=== PATIENT | female | born 1955 | race Caucasian/White ===

== ENCOUNTER 2017-05-18 14:21 | Inpatient (IN) | payer BC, OTHER ==
[~2017-05-18] VITALS: Ht 160 cm; Wt 69.2 kg
[2017-05-18] MEDS ORDERED: DILTIAZEM BOLUS / DRIP IV STA ×2 (14:40→16:22)
[2017-05-18] MEDS ORDERED: SODIUM CHLORIDE 0.9% 1000ML 1,000 ML IV STA (14:40)
[2017-05-18 14:59] LABS: BASO % 0.5 %; BASO ABS # 0.04 K/uL (0-0.2); EOS % 1.3 %; HEMATOCRIT 44.7 % (37-47); HEMOGLOBIN 15.1 g/dL (12.0-16.0); IG# 0.03 K/uL (0.00-0.02); LYMPH % 23.7 %; LYMPH ABS # 1.83 K/uL (1.2-3.4); MEAN CELL VOLUME 93.9 fL (80-100); MEAN CORPUSCULAR HEMOGLOBIN 31.7 pg (25-34); MEAN CORPUSCULAR HGB CONC 33.8 g/dl (32-36); MEAN PLATELET VOLUME 12.7 fL (7.4-10.4); MONO ABS # 0.46 K/uL (0.11-0.59); NEUT % 68.1 %; NEUT ABS # 5.27 K/uL (1.4-6.5); PLATELET COUNT 201 K/uL (130-400); RED CELL DISTRIBUTION WIDTH SD 44.8 fL (36.4-46.3); WHITE BLOOD COUNT 7.73 K/uL (4.8-10.8)
[2017-05-18] MEDS ORDERED: DILTIAZEM BOLUS FROM BAG IV ONE (15:00)
[2017-05-18] MEDS: DILTIAZEM HCL INJ 125 MG in DEXTROSE 5% 100ML IV PRN ×2 (15:05→15:46)
[2017-05-18 15:07] LABS: PTT PATIENT 22.6 SECONDS (21.0-31.0)
--- NOTE | 2017-05-18 15:09 | DIAGNOSTIC IMAGING REPORT ---
CHEST ONE VIEW PORTABLE CLINICAL HISTORY: EVALUATE RESPIRATORY DISTRESS.DYSPNEA dyspnea COMPARISON STUDY: 07/09/2015 FINDINGS: The bones soft tissues and hemidiaphragms are normal. The cardiomediastinal silhouette is normal. The lungs are clear. The pulmonary vasculature is normal. IMPRESSION: Negative chest. The above report was generated using voice recognition software. It may contain grammatical, syntax or spelling errors. Electronically signed by: Ryley Nunez M.D. 05/18/2017 3:07 PM Dictated Date/Time: 05/18/2017 3:07 PM
[2017-05-18 15:24] LABS: ALBUMIN 3.5 gm/dl (3.4-5.0); ALT/SGPT 122 U/L (12-78); BLOOD UREA NITROGEN 16 mg/dl (7-18); CALCIUM 9.2 mg/dl (8.5-10.1); CARBON DIOXIDE 21 mmol/L (21-32); CREATININE 0.73 mg/dl (0.60-1.20); GLUCOSE 128 mg/dl (70-99); SODIUM 138 mmol/L (136-145)
[2017-05-18 15:28] LABS: ALKALINE PHOSPHATASE 54 U/L (45-117); AST/SGOT 95 U/L (15-37); TOTAL PROTEIN 6.7 gm/dl (6.4-8.2)
[2017-05-18] MEDS ORDERED: METOPROLOL TARTRATE 25 MG TAB PO SCH (16:30)
[2017-05-18] MEDS ORDERED: ACETAMINOPHEN 325 MG TAB PO PRN (16:30)
[2017-05-18] MEDS ORDERED: ONDANSETRON INJ 2 MG/ML 2 ML VIAL IV PRN (16:30)
[2017-05-18] MEDS ORDERED: DILTIAZEM HCL INJ 125 MG in DEXTROSE 5% 100ML IV PRN (17:15)
[2017-05-18] MEDS ORDERED: HEPARIN SOD 5000 UNIT/0.5 ML CARP IV ONE (17:45)
[2017-05-18] MEDS: HEPARIN 25,000 UNIT/500ML D5W 500 ML IV PRN (17:55)
--- NOTE | 2017-05-18 18:01 | History and Physical ---
History & Physical Date & Time of Service: May 18, 2017 ~ 16:00 Chief Complaint: Rapid Heart Beat Primary Care Physician: Dr. Stevens History of Present Illness 62 year old female who was sent to the ED by her PCPs office for new onset atrial fibrillation with RVR. Patient reports that over the past few months she has noticed exertional shortness of breath with chest pressure. Symptoms would resolve with rest. She denies any radiation of the pain into her jaw, neck, or arm. No associated lightheadedness, dizziness, diaphoresis, nausea, or syncopal events. A few days ago, patient took her BP and pulse at home and noticed that her heart rate was in the 130s. She denies feeling palpitations. She was evaluated in her PCPs office today and was found to be in atrial fibrillation with RVR. She was sent to the ED for further evaluation. She noted lower extremity edema that will come and go. She denies orthopnea. She developed a dry cough a couple of weeks ago. No fevers, chills, or sputum production. She denies abdominal pain, vomiting, or diarrhea. No urinary symptoms. She denies any bleeding problems in the past. In the ED, patient's EKG shows atrial fibrillation with rates in the 170s. She was given Cardizem 10mg IV bolus and started on a drip. HR remains in the 130s at the time of my exam. Labs are unremarkable. Past Medical/Surgical History Medical Problems: (1) Basal cell carcinoma Status: Chronic Family History FH: colon cancer MOTHER GRANDMOTHER FH: heart attack FATHER (fatal at age 62) Social History Smoking Status: Former Smoker Alcohol Use: occasionally Multi-Drug Resistant Organisms History of MDRO: No Allergies Coded Allergies: No Known Allergies (Unverified , 04/01/15) Home Medications No Active Prescriptions or Reported Meds Review of Systems ROS per HPI, all other systems reviewed and negative Physical Exam Vital Signs Date Time Temp Pulse Resp B/P (MAP) Pulse Ox O2 Delivery O2 Flow Rate FiO2 05/18/17 16:10 136 20 115/94 96 Room Air 05/18/17 15:07 148 20 120/62 98 Nasal Cannula 2.0 05/18/17 14:43 Room Air 05/18/17 14:43 Room Air 05/18/17 14:42 170 05/18/17 14:24 36.6 148 20 132/82 95 Room Air General Appearance: WD/WN, no apparent distress Head: normocephalic, atraumatic Eyes: normal inspection, EOMI, sclerae normal ENT: hearing grossly normal, + pertinent finding (mucous membranes moist) Neck: supple, no JVD, trachea midline Respiratory/Chest: lungs clear, normal breath sounds, no respiratory distress Cardiovascular: normal peripheral pulses, + tachycardia, + irregularly irregular, + pertinent finding (trace edema BLLE) Abdomen/GI: normal bowel sounds, non tender, soft, no organomegaly Extremities/Musculoskelatal: normal inspection, no calf tenderness, normal capillary refill Neurologic/Psych: no motor/sensory deficits, alert, normal mood/affect, oriented x 3 Skin: normal color, warm/dry Diagnostics Laboratory Results Results Past 24 Hours Test 05/18/17 14:45 Range/Units White Blood Count 7.73 4.8-10.8 K/uL Red Blood Count 4.76 4.2-5.4 M/uL Hemoglobin 15.1 12.0-16.0 g/dL Hematocrit 44.7 37-47 % Mean Corpuscular Volume 93.9 80-100 fL Mean Corpuscular Hemoglobin 31.7 25-34 pg Mean Corpuscular Hemoglobin Concent 33.8 32-36 g/dl Platelet Count 201 130-400 K/uL Mean Platelet Volume 12.7 7.4-10.4 fL Neutrophils (%) (Auto) 68.1 % Lymphocytes (%) (Auto) 23.7 % Monocytes (%) (Auto) 6.0 % Eosinophils (%) (Auto) 1.3 % Basophils (%) (Auto) 0.5 % Neutrophils # (Auto) 5.27 1.4-6.5 K/uL Lymphocytes # (Auto) 1.83 1.2-3.4 K/uL Monocytes # (Auto) 0.46 0.11-0.59 K/uL Eosinophils # (Auto) 0.10 0-0.5 K/uL Basophils # (Auto) 0.04 0-0.2 K/uL RDW Standard Deviation 44.8 36.4-46.3 fL RDW Coefficient of Variation 13.0 11.5-14.5 % Immature Granulocyte % (Auto) 0.4 % Immature Granulocyte # (Auto) 0.03 0.00-0.02 K/uL Prothrombin Time 10.9 9.0-12.0 SECONDS Prothromb Time International Ratio 1.0 0.9-1.1 Activated Partial Thromboplast Time 22.6 21.0-31.0 SECONDS Partial Thromboplastin Ratio 0.9 Sodium Level 138 136-145 mmol/L Potassium Level 4.0 3.5-5.1 mmol/L Chloride Level 104 98-107 mmol/L Carbon Dioxide Level 21 21-32 mmol/L Anion Gap 13.0 3-11 mmol/L Blood Urea Nitrogen 16 7-18 mg/dl Creatinine 0.73 0.60-1.20 mg/dl Est Creatinine Clear Calc Drug Dose 73.5 ml/min Estimated GFR () 102.3 Estimated GFR (Non- 88.3 BUN/Creatinine Ratio 21.9 10-20 Random Glucose 128 70-99 mg/dl Calcium Level 9.2 8.5-10.1 mg/dl Magnesium Level 1.9 1.8-2.4 mg/dl Total Bilirubin 0.5 0.2-1 mg/dl Aspartate Amino Transf (AST/SGOT) 95 15-37 U/L Alanine Aminotransferase (ALT/SGPT) 122 12-78 U/L Alkaline Phosphatase 54 45-117 U/L Troponin I < 0.015 0-0.045 ng/ml Pro-B-Type Natriuretic Peptide 2066 0-900 pg/ml Total Protein 6.7 6.4-8.2 gm/dl Albumin 3.5 3.4-5.0 gm/dl Globulin 3.2 2.5-4.0 gm/dl Albumin/Globulin Ratio 1.1 0.9-2 Thyroid Stimulating Hormone (TSH) 1.780 0.300-4.500 uIu/ml Diagnostic Radiology CXR IMPRESSION: Negative chest. Impression Assessment and Plan ATRIAL FIBRILLATION WITH RVR - admit to tele - patient presenting from PCPs office after she was found to be in atrial fibrillation with RVR, patient reports exertional chest pain and shortness of breath for the past few months - presented with HR in the 170s - s/p Cardizem 10mg bolus and drip in the ED; will continue with and start PO metoprolol - start anticoagulation with IV heparin - initial troponin negative; continue to cycle cardiac enzymes, check resting echo - no obvious signs of infection, electrolytes and TSH WNL - case discussed with Dr. Rivas DVT PROPHYLAXIS - Heparin gtt DISPO - In my clinical judgment this beneficiary meets acute admission criteria, established by [facility], that includes being hospitalized through two midnights. Agree with above H and P. Briefly 62F with no significant PMH c was having exertional sob and chest pressure for some time and cough for couple of weeks and went to see family doctor and found to be in rapid afib and was sent to Er. Denies any fevers. No nausea. NO headaches. 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 Y/N: Yes Risk Level: Moderate
[2017-05-18] MEDS ORDERED: FUROSEMIDE 20 MG TAB PO ONE (18:30)
[2017-05-18] MEDS ORDERED: POTASSIUM CHLORIDE 10 MEQ TABCR PO ONE (18:30)
[2017-05-18 18:41] VITALS: BP 116/80; PULSE 111; TEMP 37.6; O2SAT 96; Ht 160 cm; Wt 69.2 kg
[2017-05-18] MEDS ORDERED: METOPROLOL TARTRATE 25 MG TAB PO ONE (18:45)
--- NOTE | 2017-05-18 19:20 | CARDIOLOGY CONSULTATION ---
DATE OF CONSULTATION: 05/18/2017 REFERRING: BRAD Krishnan. PRIMARY: Dr. Pinto. INDICATIONS: Atrial fibrillation with rapid ventricular response. HISTORY OF PRESENT ILLNESS: The patient is a 62-year-old female without prior cardiac history per her description, specifically denying any history of rheumatic fever, scarlet fever, heart murmur, myocardial infarction or congestive heart failure, who presented to the outpatient clinic at [facility], noting symptoms of tachypalpitations of several days to weeks, possibly months in duration by her own description. Over the weekend, she found it substantially elevated on home checks and presented for further evaluation. EKG performed and found her to be in atrial fibrillation with rapid ventricular response and she was referred to the Emergency Room for further evaluation. The patient was begun on IV diltiazem with little slowing in heart rate. She is referred for cardiology evaluation as well. On further review of systems, she denies any history of TIA or stroke. Notes no history of loss of consciousness, dizziness or lightheadedness. Notes no chest pains; has some mild breathlessness recently, but notes no specific change in her overall exercise tolerance other than a sense of heart pounding in chest. She has developed a dry nagging cough which has been persistent. Notes no sputum production, notes no acute weight loss or gain. Notes no change in appetite. Notes no sleep disturbance. Notes no rash or arthritic complaint. The patient relatively a good historian. ALLERGIES: None. MEDICATIONS PRIOR TO HOSPITALIZATION: None. PAST SURGICAL HISTORY: Per patient is none. FAMILY HISTORY: Notable for heart disease in father who had a myocardial infarction at age 62. 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 She is a nonsmoker, rare alcohol user. Uses no significant [id number] medications. PHYSICAL EXAMINATION: VITAL SIGNS: Heart rate is 130, blood pressure is 130/64. HEENT: Normocephalic, atraumatic. Nares without discharge. Throat was clear. Face was plethoric. NECK: Notable for minimal jugular venous distention, no distinct blair waves. LUNGS: Notable for mild wheezes with forced cough. CARDIOVASCULAR: Irregularly irregular with tachycardic rate. Apical impulses enlarged but minimally displaced. ABDOMEN: Soft, nontender. No distinct jugular venous distention on palpation or hepatojugular reflux. EXTREMITIES: Without cyanosis or clubbing. There is no peripheral edema. There are intact distal pulses. NEUROLOGIC: The patient is answering questions appropriately. LABORATORY STUDIES: Sodium is 138, potassium is 4.0, chloride is 104, bicarb is 21, BUN is 16, creatinine is 0.73, glucose is 128. AST is 95, ALT is 122. BNP is 2066. TSH is 1.78. Albumin is 3.5, magnesium is 1.9. IMAGING DATA: Chest x-ray by my review reveals mildly increased in cardiac silhouette size. There is no distinct infiltrate or edema. EKG reveals atrial fibrillation with rapid ventricular response, low voltage QRS, nonspecific ST segment changes. IMPRESSION: A 62-year-old female without prior cardiac history presents now with newly observed atrial fibrillation. The patient describing several weeks of perhaps longer episodes of tachypalpitations sustained, heart rate was significantly elevated on presentation and the patient is symptomatic. She has had minimal response to IV diltiazem other than slow to a heart rate of 136-140. I discussed atrial fibrillation in detail with the patient. PLAN: Slow heart rate further with beta melina, begin with 25 q. 6 hours of metoprolol, discontinuing IV diltiazem, single dose of furosemide orally be given here given mild elevation of BNP and wheezy cough with inspiration and mild plethora on examination. Echocardiogram has been ordered for a.m. She has been appropriately begun on IV heparin, but likely will transition promptly to an oral agent to be kept n.p.o. dependent on results of testing in a.m. and decide optional management. Hopefully, patient will slow with initiation of medical therapies and above changes. Low QRS which is on electrocardiogram observed, no signs to suggest a large pericardial effusion on chest x-ray or exam. Will wait a.m. studies for further review.
[2017-05-18 20:00] VITALS: O2SAT 96
[2017-05-18 20:17] VITALS: BP 126/68; PULSE 106; TEMP 37.1; O2SAT 95
--- NOTE | 2017-05-18 20:25 | EMERGENCY ROOM VISIT NOTE ---
History Report prepared by [place]: Merari Delgadillo Under the Supervision of: Dr. William Mauro D.O. First contact with patient: 14:29 Chief Complaint: RESPIRATORY PROBLEMS Stated Complaint: RAPID HEART BEAT Nursing Triage Summary: pt sent here from PMD office with new onset afib pt c/o SOB History of Present Illness The patient is a 62 year old female who presents to the Emergency Room with complaints of intermittent shortness of breath for three months. The patient notes the shortness of breath worsens with exertion. She also notes chest pressure that is present with exertion for the last three months. She denies any arm or jaw pain. She states that she developed a dry cough two weeks ago. She notes mild swelling in legs, though it is intermittent. She reports this past weekend her pulse was 130. She was recently seen by her PCP and was advised to come to the ED for evaluation due to high pulse. Patient denies diabetes, hypertension, hyperlipidemia, CAD, history of sudden at a young age, and smoking. Patient denies, recent trips, history of immobilization or recent surgery, prior history of DVT, hemoptysis, history of smoking. She denies any fevers, abdominal pain, or pain with urine. Source of History: patient Onset: three months Position: other (global ) Quality: other (shortness of breath) Timing: intermittent Modifying Factors (Worsening): exertion Associated Symptoms: + cough (dry), + chest pain (pressure with exertion), No fevers, No abdominal pain, No urinary symptoms (no pain with urine) Note: She denies any arm or jaw pain. She notes mild swelling in legs, though it is intermittent. Review of Systems See HPI for pertinent positives & negatives. A total of 10 systems reviewed and were otherwise negative. Past Medical & Surgical Medical Problems: (1) Atrial fibrillation (2) Basal cell carcinoma (3) Lumb/Lumbosac Disc Degen (4) Opioid/Other Dep-Contin Family History FH: colon cancer MOTHER GRANDMOTHER FH: heart attack FATHER (fatal at age 62) Social History Smoking Status: Never Smoker Alcohol Use: occasionally Marital Status: Occupation Status: employed Current/Historical Medications No Active Prescriptions or Reported Meds Allergies Coded Allergies: No Known Allergies (Unverified , 04/01/15) Physical Exam Vital Signs Date Time Temp Pulse Resp B/P (MAP) Pulse Ox O2 Delivery O2 Flow Rate FiO2 05/18/17 16:10 136 20 115/94 96 Room Air 05/18/17 15:07 148 20 120/62 98 Nasal Cannula 2.0 05/18/17 14:43 Room Air 05/18/17 14:43 Room Air 05/18/17 14:42 170 05/18/17 14:24 36.6 148 20 132/82 95 Room Air Physical Exam GENERAL: Sitting up in bed, alert, anxious appearing, well nourished, no distress, non-toxic EYE EXAM: normal conjunctiva. OROPHARYNX: no exudate, no erythema, lips, buccal mucosa, and tongue normal and mucous membranes are moist NECK: supple, no nuchal rigidity, no adenopathy, non-tender LUNGS: Clear to auscultation. Normal chest wall mechanics HEART: Tachycardic and irregularly irregular rhythm, no murmurs, S1 normal and S2 normal ABDOMEN: abdomen soft, non-tender, normo-active bowel sounds, no masses, no rebound or guarding. BACK: Back is symmetrical on inspection and there is no deformity, no midline tenderness, no CVA tenderness. SKIN: no rashes and no bruising UPPER EXTREMITIES: upper extremities are grossly normal. LOWER EXTREMITIES: No pitting edema. Calves are equal and bilateral. NEURO EXAM: Normal sensorium, cranial nerves II-XII grossly intact, normal speech, no gross weakness of arms, no gross weakness of legs. Medical Decision & Procedures ER Provider Diagnostic Interpretation: Radiology results as stated below per my review and the radiologist's interpretation: CHEST ONE VIEW PORTABLE CLINICAL HISTORY: EVALUATE RESPIRATORY DISTRESS.DYSPNEA dyspnea COMPARISON STUDY: 07/09/2015 FINDINGS: The bones soft tissues and hemidiaphragms are normal. The cardiomediastinal silhouette is normal. The lungs are clear. The pulmonary vasculature is normal. IMPRESSION: Negative chest. The above report was generated using voice recognition software. It may contain grammatical, syntax or spelling errors. Electronically signed by: Ryley Nunez M.D. 05/18/2017 3:07 PM Dictated Date/Time: 05/18/2017 3:07 PM Laboratory Results 05/18/17 14:45 Red Blood Count 4.76, Mean Corpuscular Volume 93.9, Mean Corpuscular Hemoglobin 31.7, Mean Corpuscular Hemoglobin Concent 33.8, Mean Platelet Volume 12.7, Neutrophils (%) (Auto) 68.1, Lymphocytes (%) (Auto) 23.7, Monocytes (%) (Auto) 6.0, Eosinophils (%) (Auto) 1.3, Basophils (%) (Auto) 0.5, Neutrophils # (Auto) 5.27, Lymphocytes # (Auto) 1.83, Monocytes # (Auto) 0.46, Eosinophils # (Auto) 0.10, Basophils # (Auto) 0.04 05/18/17 14:45 Test 05/18/17 14:45 05/18/17 14:48 White Blood Count 7.73 K/uL (4.8-10.8) Red Blood Count 4.76 M/uL (4.2-5.4) Hemoglobin 15.1 g/dL (12.0-16.0) Hematocrit 44.7 % (37-47) Mean Corpuscular Volume 93.9 fL (80-100) Mean Corpuscular Hemoglobin 31.7 pg (25-34) Mean Corpuscular Hemoglobin Concent 33.8 g/dl (32-36) Platelet Count 201 K/uL (130-400) Mean Platelet Volume 12.7 fL (7.4-10.4) Neutrophils (%) (Auto) 68.1 % Lymphocytes (%) (Auto) 23.7 % Monocytes (%) (Auto) 6.0 % Eosinophils (%) (Auto) 1.3 % Basophils (%) (Auto) 0.5 % Neutrophils # (Auto) 5.27 K/uL (1.4-6.5) Lymphocytes # (Auto) 1.83 K/uL (1.2-3.4) Monocytes # (Auto) 0.46 K/uL (0.11-0.59) Eosinophils # (Auto) 0.10 K/uL (0-0.5) Basophils # (Auto) 0.04 K/uL (0-0.2) RDW Standard Deviation 44.8 fL (36.4-46.3) RDW Coefficient of Variation 13.0 % (11.5-14.5) Immature Granulocyte % (Auto) 0.4 % Immature Granulocyte # (Auto) 0.03 K/uL (0.00-0.02) Prothrombin Time 10.9 SECONDS (9.0-12.0) Prothromb Time International Ratio 1.0 (0.9-1.1) Activated Partial Thromboplast Time 22.6 SECONDS (21.0-31.0) Partial Thromboplastin Ratio 0.9 Anion Gap 13.0 mmol/L (3-11) Est Creatinine Clear Calc Drug Dose 73.5 ml/min Estimated GFR () 102.3 Estimated GFR (Non- 88.3 BUN/Creatinine Ratio 21.9 (10-20) Calcium Level 9.2 mg/dl (8.5-10.1) Magnesium Level 1.9 mg/dl (1.8-2.4) Total Bilirubin 0.5 mg/dl (0.2-1) Aspartate Amino Transf (AST/SGOT) 95 U/L (15-37) Alanine Aminotransferase (ALT/SGPT) 122 U/L (12-78) Alkaline Phosphatase 54 U/L (45-117) Pro-B-Type Natriuretic Peptide 2066 pg/ml (0-900) Total Protein 6.7 gm/dl (6.4-8.2) Albumin 3.5 gm/dl (3.4-5.0) Globulin 3.2 gm/dl (2.5-4.0) Albumin/Globulin Ratio 1.1 (0.9-2) Thyroid Stimulating Hormone (TSH) 1.780 uIu/ml (0.300-4.500) Laboratory results per my review. Medications Administered Medications (Trade) Dose Ordered Sig/Callie Route Start Time Stop Time Status Last Admin Dose Admin Sodium Chloride 1,000 ml @ 999 mls/hr Q1H1M STAT IV 05/18/17 14:40 05/18/17 15:40 DC 05/18/17 15:04 999 MLS/HR Diltiazem HCl (Cardizem Bolus From Bag) 10 mg ONE ONCE IV 05/18/17 15:00 05/18/17 15:01 DC 05/18/17 15:00 10 MG Diltiazem HCl 125 mg/Dextrose 125 ml @ 0 mls/hr Q0M PRN IV 05/18/17 15:00 05/18/17 18:40 DC 05/18/17 15:46 10 MLS/HR ECG Indication: SOB/dyspnea Rate (beats per minute): 177 Rhythm: atrial fibrillation, other (with RVR) Findings: nonspecific-ST abn (Inferior and lateral), other (Normal axis) ED Course ED COURSE: Vital signs were reviewed and showed tachycardic The patients medical record was reviewed The above diagnostic studies were performed and reviewed. ED treatments and interventions as stated above. 1433: The patient was evaluated in room A11B. A complete history and physical examination was performed. 1440: Ordered Sodium Chloride 1,000 ml @ 999 mls/hr IV and Diltiazem HCl 1 ea IV 1500: Ordered Diltiazem HCl 125 mg/Dextrose 125 ml @ 0 mls/hr PRN IV and Diltiazem HCl 10 mg IV 1535: Upon reevaluation, the patient's heart rate is in the 120s. I discussed my findings with the patient and she understands and agrees with the treatment plan. Based on the patients age, coexisting illnesses, exam and lab findings the decision to treat as an inpatient was made. The patient remained stable while under my care. The patient will be evaluated for further management. 1550: I spoke with BRAD Krishnan. We discussed the patients case. The patient will be evaluated by the [facility] for further management. Medical Decision Differential diagnoses includes but is not limited to pneumonia, bronchitis, COPD/Asthma exacerbation, pneumothorax, pulmonary embolism, congestive heart failure, acute coronary syndrome. Patient is a 62-year-old female who presents to ER for shortness of breath which has been present for the past several months. She also admits to feeling her heart race over the past several days. checked her heart rate over the weekend and was in the 130s. She admits to a cough for the past week. Shortness of breath is present with movement. With rest she is not short of breath will and has no chest pain. CBC all BMP and troponin was unremarkable. She had a faint transaminitis. INR was unremarkable. UA was contaminated. Chest x-ray was fairly unremarkable. EKG shows A. fib with RVR. Heart rate was in the 170s. She was given Cardizem drip and bolus. Heart trended down to low 100s. She rested comfortably. She was admitted to internal medicine for further workup of her A. fib with RVR. Medication Reconcilliation Current Medication List: was personally reviewed by me Blood Pressure Screening Patient's blood pressure: Normal blood pressure Consults Time Called: [id number] Consulting Physician: BRAD Krishnan Returned Call: 1550 I spoke with BRAD Krishnan. We discussed the patients case. [facility]. Impression Primary Impression: Atrial fibrillation with RVR Critical Care I have personally spent 35 minutes of critical care time in the direct management of this patient. This includes bedside care, interpretation of diagnostic studies, and testing, discussion with consultants, patient, and family members, and other required patient management activities. This 35 minutes is in excess of all separately billable procedures. Scribe Attestation The scribe's documentation has been prepared under my direction and personally reviewed by me in its entirety. I confirm that the note above accurately reflects all work, treatment, procedures, and medical decision making performed by me. Departure Information Dispostion Being Evaluated By Hospitalist Prescriptions No Active Prescriptions or Reported Meds Referrals Adriana Seymour DO (PCP) Patient Instructions [facility]
[2017-05-18] MEDS: METOPROLOL TARTRATE 25 MG TAB PO SCH (22:30)
[2017-05-18 22:50] VITALS: BP 91/62; PULSE 81; TEMP 37; O2SAT 97
[2017-05-19] VITALS (17 sets, daily range): BP systolic 77–126; BP diastolic 46–82; PULSE 74–130; TEMP 36.5–36.8; O2SAT 92–96
[2017-05-19 01:23] LABS: PTT PATIENT 69.2 SECONDS (21.0-31.0)
[2017-05-19] MEDS ORDERED: LORAZEPAM 0.5 MG TAB PO ONE (01:45)
[2017-05-19] MEDS: METOPROLOL TARTRATE 25 MG TAB PO SCH ×2 (06:32→10:46)
[2017-05-19 07:40] LABS: HEMATOCRIT 40.8 % (37-47); HEMOGLOBIN 13.8 g/dL (12.0-16.0); MEAN CORPUSCULAR HEMOGLOBIN 31.8 pg (25-34); MEAN CORPUSCULAR HGB CONC 33.8 g/dl (32-36); MEAN PLATELET VOLUME 12.9 fL (7.4-10.4); PLATELET COUNT 156 K/uL (130-400); RED CELL DISTRIBUTION WIDTH SD 44.7 fL (36.4-46.3); WHITE BLOOD COUNT 6.52 K/uL (4.8-10.8)
[2017-05-19 08:09] LABS: CALCIUM 8.8 mg/dl (8.5-10.1); CREATININE 0.58 mg/dl (0.60-1.20); POTASSIUM 3.9 mmol/L (3.5-5.1)
--- NOTE | 2017-05-19 09:44 | Cardiology Follow-Up ---
Subjective General Date of Service: May 19, 2017. Chief Complaint: palpitations Pt evaluation today including: conversation w/ patient, physical exam, chart review, lab review, review of studies, review of inpatient medication list History of Present Illness Patient resting in bed comfortably. Daughter at bedside. Symptoms improved from admission but still noted. No chest pain or SOB. Cough improving from yesterday. Denies dizziness, syncope or near syncope. No orthopnea, PND or edema. She is NPO Allergies Coded Allergies: No Known Allergies (Unverified , 04/01/15) Social History Smoking Status: Never Smoker Hx Tobacco Use In Past Year?: No Hx Alcohol Use - Type And Amou: Yes (occasional wine) Hx Substance Use - Type And Am: No Problem List Medical Problems: (1) Atrial fibrillation with RVR Status: Acute Review of Systems Respiratory: + cough, No sputum, No shortness of breath, No dyspnea at rest, No hemoptysis Cardiac: + palpitations, No chest pain, No orthopnea, No PND, No edema Physical Exam Vital Signs Last Vital Signs Documentation Date Time Temp Pulse Resp B/P (MAP) Pulse Ox O2 Delivery O2 Flow Rate FiO2 05/19/17 08:05 36.7 109 18 99/65 (76) 95 Room Air 05/18/17 17:56 2.0 Physical Exam Constitutional: General Apperance: heathly-appearing Level of Distress: NAD Psychiatric: Mental Status: active & alert Orientation: to time, to place, to person Head: normocephalic, atraumatic Eyes: Pupils: PERRLA Neck: supple Lungs: Respiratory effort: good air movement Auscultation: wet rales/crackles (faint bibasilar rales) Cardiovascular: Heart Auscultation: tachycardia, irregular rate rhythm Abdomen: Bowel Sounds: normal Inspection & Palpation: soft, non-distended Extremities: no edema Assessment and Plan Assessment and Plan ASSESSMENT: 62-year-old female with no known prior cardiac history presenting with 1. new onset Atrial fibrillation with RVR, duration suggestive of weeks to months. 2. Cardiomyopathy with severe LV dysfunction per echo this AM, possibly tachy induced. PLAN: Continue IV heparin for anticoagulation therapy Continue metoprolol for rate control. Rates ranging 110-130 Plan for possible diagnostic cardiac cath today for further evaluation of cardiomyopathy. Keep NPO. Case discussed with Dr. Rivas. Will follow Plan as above cath today. ? ALHAJI cardioversion am Ariel Rivas MD Laboratory Results Last 24 Hours Test 05/18/17 14:45 05/18/17 14:48 05/18/17 18:30 05/18/17 19:56 White Blood Count 7.73 K/uL Red Blood Count 4.76 M/uL Hemoglobin 15.1 g/dL Hematocrit 44.7 % Mean Corpuscular Volume 93.9 fL Mean Corpuscular Hemoglobin 31.7 pg Mean Corpuscular Hemoglobin Concent 33.8 g/dl Platelet Count 201 K/uL Mean Platelet Volume 12.7 fL Neutrophils (%) (Auto) 68.1 % Lymphocytes (%) (Auto) 23.7 % Monocytes (%) (Auto) 6.0 % Eosinophils (%) (Auto) 1.3 % Basophils (%) (Auto) 0.5 % Neutrophils # (Auto) 5.27 K/uL Lymphocytes # (Auto) 1.83 K/uL Monocytes # (Auto) 0.46 K/uL Eosinophils # (Auto) 0.10 K/uL Basophils # (Auto) 0.04 K/uL RDW Standard Deviation 44.8 fL RDW Coefficient of Variation 13.0 % Immature Granulocyte % (Auto) 0.4 % Immature Granulocyte # (Auto) 0.03 K/uL Prothrombin Time 10.9 SECONDS Prothromb Time International Ratio 1.0 Activated Partial Thromboplast Time 22.6 SECONDS Partial Thromboplastin Ratio 0.9 Sodium Level 138 mmol/L Potassium Level 4.0 mmol/L Chloride Level 104 mmol/L Carbon Dioxide Level 21 mmol/L Anion Gap 13.0 mmol/L Blood Urea Nitrogen 16 mg/dl Creatinine 0.73 mg/dl Est Creatinine Clear Calc Drug Dose 73.5 ml/min Estimated GFR () 102.3 Estimated GFR (Non- 88.3 BUN/Creatinine Ratio 21.9 Random Glucose 128 mg/dl Calcium Level 9.2 mg/dl Magnesium Level 1.9 mg/dl Total Bilirubin 0.5 mg/dl Aspartate Amino Transf (AST/SGOT) 95 U/L Alanine Aminotransferase (ALT/SGPT) 122 U/L Alkaline Phosphatase 54 U/L Troponin I < 0.015 ng/ml < 0.015 ng/ml Pro-B-Type Natriuretic Peptide 2066 pg/ml Total Protein 6.7 gm/dl Albumin 3.5 gm/dl Globulin 3.2 gm/dl Albumin/Globulin Ratio 1.1 Thyroid Stimulating Hormone (TSH) 1.780 uIu/ml Urine Color YELLOW Urine Appearance CLEAR Urine pH 5.5 Urine Specific [place] 1.016 Urine Protein NEG Urine Glucose (UA) NEG Urine Ketones NEG Urine Occult Blood NEG Urine Nitrite NEG Urine Bilirubin NEG Urine Urobilinogen NEG Urine Leukocyte Esterase LARGE Urine WBC (Auto) 10-30 /hpf Urine RBC (Auto) 0-4 /hpf Urine Hyaline Casts (Auto) 1-5 /lpf Urine Epithelial Cells (Auto) >30 /lpf Urine Bacteria (Auto) NEG Hepatitis C Antibody Screen NEG Test 05/19/17 00:50 05/19/17 07:15 Activated Partial Thromboplast Time 69.2 SECONDS Partial Thromboplastin Ratio 2.7 Troponin I < 0.015 ng/ml White Blood Count 6.52 K/uL Red Blood Count 4.34 M/uL Hemoglobin 13.8 g/dL Hematocrit 40.8 % Mean Corpuscular Volume 94.0 fL Mean Corpuscular Hemoglobin 31.8 pg Mean Corpuscular Hemoglobin Concent 33.8 g/dl RDW Standard Deviation 44.7 fL RDW Coefficient of Variation 13.0 % Platelet Count 156 K/uL Mean Platelet Volume 12.9 fL Sodium Level 137 mmol/L Potassium Level 3.9 mmol/L Chloride Level 106 mmol/L Carbon Dioxide Level 24 mmol/L Anion Gap 7.0 mmol/L Blood Urea Nitrogen 10 mg/dl Creatinine 0.58 mg/dl Est Creatinine Clear Calc Drug Dose 91.7 ml/min Estimated GFR () 114.5 Estimated GFR (Non- 98.8 BUN/Creatinine Ratio 17.6 Random Glucose 116 mg/dl Calcium Level 8.8 mg/dl
[2017-05-19] MEDS ORDERED: MIDAZOLAM HCL 1 MG/ML 2ML VIAL ONE (12:40)
[2017-05-19] MEDS ORDERED: FENTANYL CITRATE INJ 50 MCG/1 ML 2 ML VIAL ONE (12:40)
[2017-05-19] MEDS ORDERED: NITROGLYCERIN/D5W 100MCG/ML 20ML SYR ONE (12:41)
[2017-05-19] MEDS ORDERED: NiCARDipine HCL INJ 2.5 MG/ML 10 ML AMP ONE (12:41)
[2017-05-19] MEDS ORDERED: HEPARIN SOD (PORCINE) 1000 UNIT/ML 10 ML VIAL ONE (12:41)
--- NOTE | 2017-05-19 13:29 | Progress Note ---
Medicine Progress Note Date & Time of Visit: May 19, 2017 at 13:03. Subjective Pt was seen and examined Sitting in bed with no distress with daughter at bed Pt said that she feels fine She denies any chest pain, palpitation, dizziness and SOB Objective Last 8 Hrs Date Time Temp Pulse Resp B/P (MAP) Pulse Ox O2 Delivery O2 Flow Rate FiO2 05/19/17 10:46 36.8 128 20 126/82 (97) 92 Room Air 05/19/17 08:05 36.7 109 18 99/65 (76) 95 Room Air 05/19/17 08:00 Room Air Physical Exam: General- No acute distress Head- atraumatic Eyes- PERRL, EOMI ENT- oropharynx clear Neck- supple, no JVD Lungs- No wheezing Heart- irregular rhythm Abdomen- normal bowel sounds, soft Extremities- no calf tenderness Neuro- alert, oriented x 3; PERRL, EOMI Skin- warm & dry Laboratory Results: Last 24 Hours Test 05/18/17 14:45 05/18/17 14:48 05/18/17 18:30 05/18/17 19:56 White Blood Count 7.73 K/uL Red Blood Count 4.76 M/uL Hemoglobin 15.1 g/dL Hematocrit 44.7 % Mean Corpuscular Volume 93.9 fL Mean Corpuscular Hemoglobin 31.7 pg Mean Corpuscular Hemoglobin Concent 33.8 g/dl Platelet Count 201 K/uL Mean Platelet Volume 12.7 fL Neutrophils (%) (Auto) 68.1 % Lymphocytes (%) (Auto) 23.7 % Monocytes (%) (Auto) 6.0 % Eosinophils (%) (Auto) 1.3 % Basophils (%) (Auto) 0.5 % Neutrophils # (Auto) 5.27 K/uL Lymphocytes # (Auto) 1.83 K/uL Monocytes # (Auto) 0.46 K/uL Eosinophils # (Auto) 0.10 K/uL Basophils # (Auto) 0.04 K/uL RDW Standard Deviation 44.8 fL RDW Coefficient of Variation 13.0 % Immature Granulocyte % (Auto) 0.4 % Immature Granulocyte # (Auto) 0.03 K/uL Prothrombin Time 10.9 SECONDS Prothromb Time International Ratio 1.0 Activated Partial Thromboplast Time 22.6 SECONDS Partial Thromboplastin Ratio 0.9 Sodium Level 138 mmol/L Potassium Level 4.0 mmol/L Chloride Level 104 mmol/L Carbon Dioxide Level 21 mmol/L Anion Gap 13.0 mmol/L Blood Urea Nitrogen 16 mg/dl Creatinine 0.73 mg/dl Est Creatinine Clear Calc Drug Dose 73.5 ml/min Estimated GFR () 102.3 Estimated GFR (Non- 88.3 BUN/Creatinine Ratio 21.9 Random Glucose 128 mg/dl Calcium Level 9.2 mg/dl Magnesium Level 1.9 mg/dl Total Bilirubin 0.5 mg/dl Aspartate Amino Transf (AST/SGOT) 95 U/L Alanine Aminotransferase (ALT/SGPT) 122 U/L Alkaline Phosphatase 54 U/L Troponin I < 0.015 ng/ml < 0.015 ng/ml Pro-B-Type Natriuretic Peptide 2066 pg/ml Total Protein 6.7 gm/dl Albumin 3.5 gm/dl Globulin 3.2 gm/dl Albumin/Globulin Ratio 1.1 Thyroid Stimulating Hormone (TSH) 1.780 uIu/ml Urine Color YELLOW Urine Appearance CLEAR Urine pH 5.5 Urine Specific [place] 1.016 Urine Protein NEG Urine Glucose (UA) NEG Urine Ketones NEG Urine Occult Blood NEG Urine Nitrite NEG Urine Bilirubin NEG Urine Urobilinogen NEG Urine Leukocyte Esterase LARGE Urine WBC (Auto) 10-30 /hpf Urine RBC (Auto) 0-4 /hpf Urine Hyaline Casts (Auto) 1-5 /lpf Urine Epithelial Cells (Auto) >30 /lpf Urine Bacteria (Auto) NEG Hepatitis C Antibody Screen NEG Test 05/19/17 00:50 05/19/17 07:15 Activated Partial Thromboplast Time 69.2 SECONDS Partial Thromboplastin Ratio 2.7 Troponin I < 0.015 ng/ml White Blood Count 6.52 K/uL Red Blood Count 4.34 M/uL Hemoglobin 13.8 g/dL Hematocrit 40.8 % Mean Corpuscular Volume 94.0 fL Mean Corpuscular Hemoglobin 31.8 pg Mean Corpuscular Hemoglobin Concent 33.8 g/dl RDW Standard Deviation 44.7 fL RDW Coefficient of Variation 13.0 % Platelet Count 156 K/uL Mean Platelet Volume 12.9 fL Sodium Level 137 mmol/L Potassium Level 3.9 mmol/L Chloride Level 106 mmol/L Carbon Dioxide Level 24 mmol/L Anion Gap 7.0 mmol/L Blood Urea Nitrogen 10 mg/dl Creatinine 0.58 mg/dl Est Creatinine Clear Calc Drug Dose 91.7 ml/min Estimated GFR () 114.5 Estimated GFR (Non- 98.8 BUN/Creatinine Ratio 17.6 Random Glucose 116 mg/dl Calcium Level 8.8 mg/dl Assessment & Plan ATRIAL FIBRILLATION WITH RVR Present to the ER with Afib with HR btw 140 to 170 Was starting on Cardizem drip, that was d/c Rate is uncontrolled and remain in Afib Starting on Metoprolol 25 mg PO q6hr On heparin drip Echo pending cardiology on board Plan to go to cardiac cath today (unofficial Echo showed LV dysnfuction) Continue monitor in telemetry keep NPO for now DVT PROPHYLAXIS - Heparin gtt CODE STATUS FULL CODE Current Inpatient Medications: Current Inpatient Medications Medications (Trade) Dose Ordered Sig/Callie Route Start Time Stop Time Status Last Admin Dose Admin Acetaminophen (Tylenol Tab) 650 mg Q4H PRN PO 05/18/17 16:30 06/17/17 16:29 Ondansetron HCl (Zofran Inj) 4 mg Q6H PRN IV 05/18/17 16:30 06/17/17 16:29 Metoprolol Tartrate (Lopressor Tab) 25 mg Q6 PO 05/18/17 22:30 06/17/17 22:29 05/19/17 10:46 25 MG Heparin Sodium/ Dextrose 500 ml @ 21 mls/hr [id number] PRN IV 05/18/17 17:45 06/17/17 17:44 05/18/17 17:55 21 MLS/HR
[2017-05-19] MEDS ORDERED: METOPROLOL TARTRATE 1 MG/ML VIAL ONE (13:47)
--- NOTE | 2017-05-19 13:55 | [facility] Post Operative Brief Note ---
Preliminary Procedure Note Procedure Date May 19, 2017. Pre-Procedure Diagnosis Cardiomyopathy AUC Score 7 Post-Procedure Diagnosis Normal Coronary Arteries Procedure(s) Performed Coronary Angiography, Left Heart Cath Breakfast Host Dr. Ariel Rivas Athletic Equipment Manager(s) Amilcar Grace Estimated Blood Loss <15cc Medication(s) Fentanyl (12.5 mcg IV), Nicardipine (250 mcg intraarterial after sheath insertion), Nitroglycerin, Versed (1mg IV), Lidocaine 1% (local infiltration) Preliminary Findings Atrial fibrillation with rapid ventricular response Normal coronaries Right dominant anatomy [id number] Recommendations Medical therapy and/or Counseling Specimens None Fluids (cc crystalloids) 60 Anesthesia Start 1328 End 1345 Procedural Complication(s) None Disposition PCU
[2017-05-19] MEDS ORDERED: METOPROLOL SUCC 25MG EXT REL TAB PO ONE (14:09)
[2017-05-19] MEDS ORDERED: SODIUM CHLORIDE 0.9% 1000ML 250 ML IV PRN (14:09)
[2017-05-19] MEDS ORDERED: ATROPINE SULFATE 0.1 MG/ML 5ML SYR IV PRN (14:15)
[2017-05-19] MEDS ORDERED: NITROGLYCERIN 0.4 MG SL PER TAB CHARGE SL PRN (14:15)
[2017-05-19] MEDS ORDERED: ACETAMINOPHEN 325 MG TAB PO PRN (14:15)
[2017-05-19] MEDS ORDERED: NURSING VERBAL MED ORDER ONE (14:30)
[2017-05-19] MEDS: SODIUM CHLORIDE 0.9% 1000ML 1,000 ML IV SCH ×2 (14:38→23:04)
[2017-05-19] MEDS: METOPROLOL SUCC 25MG EXT REL TAB PO SCH ×2 (17:59→23:06)
--- NOTE | 2017-05-19 18:26 | CARDIAC CATH REPORT ---
INDICATIONS: Newly diagnosed cardiomyopathy, atrial fibrillation with rapid ventricular response. PROCEDURE: Coronary angiography with left heart catheterization. BRIEF CARDIAC HISTORY: The patient is a 62-year-old female who presented with atrial fibrillation and rapid ventricular response with difficult to control rates. Echocardiogram demonstrated moderately severe LV dysfunction in diffuse manner. EKG has heart rate slowed demonstrated T-wave inversion in inferolateral leads, suggestive of ischemia. The patient had not manifested angina pectoris, exertional dyspnea and shortness of breath and class 2 heart failure was observed. No stress testing was done prior to the procedure, due to acute presentation. ACCESS: Right radial artery. CATHETERS: A 6-[place] short glide sheath, a 5[place] brachial 3.5, and a 5[place] straight pigtail. CONTRAST: Nonionic x40 mL Visipaque. SEDATION: Start time 11:28. End time 11:45. SUPERVISING NURSE: Kyle Tay RN. SEDATION: A 1 mg IV Versed and 12.5 mg IV fentanyl. MEDICATIONS: The patient received local infiltration of access site with 1% lidocaine. Following sheath insertion, 250 mcg intra-arterial nicardipine was injected and after central access obtained patient was given 2000 units IV heparin. IV FLUIDS: 60 mL normal saline. COMPLICATIONS: None. RESULTS: CORONARY ANGIOGRAPHY: Right dominant coronary anatomy was present. Left main was of normal length and caliber and bifurcated to give rise to left anterior descending and left circumflex coronaries. There is no disease in the left main. LEFT ANTERIOR DESCENDING: Left anterior descending is a short type 2 vessel with large bifurcating diagonal branch and large septal branch in its proximal third. There is no disease in the left anterior descending. LEFT CIRCUMFLEX: Left circumflex is large but nondominant in distribution. It gives rise to a very large obtuse marginal which bifurcates and reaches to the apex with significant tortuosity. The circumflex then continues along the AV groove to give rise to a moderate size posterolateral branch and an atrial branch. There is no disease in the left circumflex. RIGHT CORONARY ARTERY: The right coronary is dominant in distribution, gives rise to a sinoatrial branch after its origin, a right ventricular branch in its mid portion at the AV groove along posterior descending artery and along the AV groove along terminal bifurcating posterior ventricular branch. There is no disease in the right coronary artery. LEFT VENTRICULAR ANGIOGRAPHY: Not performed. HEMODYNAMICS: Initial aortic root pressure was 105/76 with a mean of 89 with a heart rate of 120, LV pressure following coronary angiography was 100/11 with an EDP of 18. On pullback to the aortic root, there was no transaortic valve gradient. Blood pressure at the close 110/76 with a mean of 96. FINAL IMPRESSIONS: 1. Atrial fibrillation with rapid ventricular response. 2. Diffuse cardiomyopathy by echocardiography. 3. Normal right dominant coronary anatomy without coronary artery disease. 4. Minimally elevated left end diastolic pressure. MTDD
[2017-05-19] MEDS: HEPARIN 25,000 UNIT/500ML D5W 500 ML IV PRN ×2 (19:13→19:54)
--- NOTE | 2017-05-19 22:21 | ECHOCARDIOGRAM REPORT ---
*NOTICE TO RECEIVING CONSTITUTION PARTY AGENCY This information is strictly Confidential and protected under [place] law. [place] law prohibits you from making any further disclosure of this information unless further disclosure is expressly permitted by the written consent of the person to whom it pertains or is authorized by law. A general authorization for the release of medical or other information is not sufficient for this purpose. Hospital accepts no responsibility if the information is made available to any other person, INCLUDING THE PATIENT. Interpretation Summary * Name: SHUN MANDUJANO Study Date: 05/19/2017 06:38 AM BP: 106/78 mmHg * Patient Location: C.2T\S\S243\S\1 HR: 87 * : 1955 (M/d/yyy) Gender: Female Height: 63 in * Age: 62 yrs Ethnicity: [place] Weight: 147 lb * Ordering Physician: Ryanne Harden * Referring Physician: Self, Referred * Performed By: Leatha Neely RDCS * * Reason For Study: AFIB * BSA: 1.7 m2 * -- Conclusions -- * The left ventricle is normal in size. * There is moderate to severe global hypokinesis of the left ventricle. * Ejection Fraction = 35-40%. * The left atrium is moderately dilated. * The right atrium is mild to moderately dilated. * There is moderate to severe mitral regurgitation. * There is mild tricuspid regurgitation. * The inferior vena cava is mildly dilated. Procedure Details * A contrast injection of Definity was performed to improve assessment of LV function. * Contrast was injected into an intravenous site in the left arm. * One vial of Definity ultrasound contrast was diluted in normal saline to a total volume of 10 ml. A total of '2' ml of solution was administered during imaging. * Lot # [id number] of Definity utilized for procedure. * Expiration date MAY 20. * The attending nurse who injected the contrast agent was ALONZO HIDALGO. * A complete two-dimensional transthoracic echocardiogram was performed (2D, M-mode, Doppler and color flow Doppler). Left Ventricle * The left ventricle is normal in size. * There is mild concentric left ventricular hypertrophy. * Ejection Fraction = 35-40%. * There is moderate to severe global hypokinesis of the left ventricle. Right Ventricle * The right ventricle is normal in size and function. Atria * The left atrium is moderately dilated. * The right atrium is mild to moderately dilated. * No ASD detected; PFO is not assessed. Mitral Valve * The mitral valve anatomy is normal. * There is no mitral valve stenosis. * There is moderate to severe mitral regurgitation. Tricuspid Valve * The tricuspid valve anatomy is normal. * There is no tricuspid stenosis. * There is mild tricuspid regurgitation. Aortic Valve * The aortic valve is trileaflet. * No hemodynamically significant valvular aortic stenosis. * No aortic regurgitation is present. Pulmonic Valve * The pulmonic valve is not well visualized. Great Vessels * The aortic root is normal size. Pericardium/Pleural * There is no pericardial effusion. Great Vessels * The inferior vena cava is mildly dilated. MMode 2D Measurements and Calculations IVSd 0.92 cm IVSs 1.2 cm LVIDd 4.7 cm LVIDs 3.6 cm LVPWd 1.4 cm LVPWs 1.8 cm IVS/LVPW 0.65 FS 22.7 % EDV(Teich) 102.4 ml ESV(Teich) 55.7 ml EF(Teich) 45.6 % EDV(cubed) 103.9 ml ESV(cubed) 48.0 ml EF(cubed) 53.8 % % IVS thick 31.9 % % LVPW thick 29.1 % LV mass(C)d 204.3 grams LV mass(C)dI 120.4 grams/m\S\2 LV mass(C)s 208.5 grams LV mass(C)sI 122.9 grams/m\S\2 SV(Teich) 46.8 ml SI(Teich) 27.6 ml/m\S\2 SV(cubed) 55.9 ml SI(cubed) 33.0 ml/m\S\2 Ao root diam 2.7 cm Ao root area 5.6 cm\S\2 LA dimension 4.4 cm LA/Ao 1.7 LVAd ap4 32.1 cm\S\2 LVLd ap4 7.8 cm EDV(MOD-sp4) 109.5 ml EDV(sp4-el) 112.4 ml LVAs ap4 23.4 cm\S\2 LVLs ap4 7.1 cm ESV(MOD-sp4) 63.7 ml ESV(sp4-el) 65.0 ml EF(MOD-sp4) 41.9 % EF(sp4-el) 42.2 % LVAd ap2 25.2 cm\S\2 LVLd ap2 7.0 cm EDV(MOD-sp2) 74.1 ml EDV(sp2-el) 77.6 ml LVAs ap2 17.1 cm\S\2 LVLs ap2 6.2 cm ESV(MOD-sp2) 40.3 ml ESV(sp2-el) 40.5 ml EF(MOD-sp2) 45.6 % EF(sp2-el) 47.8 % LVLd %diff -11.58 % EDV(MOD-bp) 93.3 ml LVLs %diff -15.79 % ESV(MOD-bp) 53.4 ml EF(MOD-bp) 42.8 % SV(MOD-sp4) 45.8 ml SI(MOD-sp4) 27.0 ml/m\S\2 SV(MOD-sp2) 33.8 ml SI(MOD-sp2) 19.9 ml/m\S\2 SV(MOD-bp) 39.9 ml SI(MOD-bp) 23.5 ml/m\S\2 SV(sp4-el) 47.4 ml SI(sp4-el) 27.9 ml/m\S\2 SV(sp2-el) 37.1 ml SI(sp2-el) 21.8 ml/m\S\2 Doppler Measurements and Calculations Ao V2 max 117.3 cm/sec Ao max PG 5.5 mmHg Ao max PG (full) 4.2 mmHg LV V1 max PG 1.3 mmHg LV V1 max 56.3 cm/sec MR max mal 459.9 cm/sec MR max PG 84.7 mmHg MR mean mal 348.5 cm/sec MR mean PG 54.4 mmHg MR VTI 131.1 cm TR max mal 221.6 cm/sec
[2017-05-20] VITALS (12 sets, daily range): BP systolic 90–114; BP diastolic 33–73; PULSE 78–195; TEMP 36.6–36.9; O2SAT 94–97
[2017-05-20 06:02] LABS: PTT PATIENT 65.8 SECONDS (21.0-31.0)
[2017-05-20] MEDS: SODIUM CHLORIDE 0.9% 1000ML 1,000 ML IV SCH ×3 (06:17→22:02)
[2017-05-20] MEDS: METOPROLOL SUCC 25MG EXT REL TAB PO SCH ×3 (06:18→16:42)
[2017-05-20] MEDS ORDERED: BENZOCAIN/TETRACA/BUTAM SPRAY 200 APPLN/20 GM SPRY ONE (10:21)
[2017-05-20] MEDS ORDERED: FENTANYL CITRATE INJ 50 MCG/1 ML 2 ML VIAL ONE (10:21)
[2017-05-20] MEDS ORDERED: MIDAZOLAM HCL 1 MG/ML 2ML VIAL ONE (10:21)
[2017-05-20] MEDS ORDERED: GLYCOPYRROLATE INJ 0.2 MG/ML VIAL ONE (10:21)
[2017-05-20] MEDS ORDERED: CANNULA ONE (10:22)
--- NOTE | 2017-05-20 11:03 | Pre Sedation Assessment ---
Pre Sedation Assessment General Date of Sedation: May 20, 2017. Vital Signs Past 12 Hours Date Time Temp Pulse Resp B/P (MAP) Pulse Ox O2 Delivery O2 Flow Rate FiO2 05/20/17 10:50 145 16 107/77 (87) 98 Nasal Cannula 2 05/20/17 08:00 Room Air 05/20/17 07:37 36.7 104 18 109/72 (84) 95 Room Air 05/20/17 06:18 108/67 (81) 05/20/17 04:00 Room Air 05/20/17 03:16 36.6 112 18 102/64 (77) 96 Room Air 05/20/17 00:00 Room Air 05/19/17 23:05 36.7 115 85/54 (64) 95 Room Air Review Cardiovascular: no murmur, normal peripheral pulses, + tachycardia, + irregularly irregular Lungs: chest non-tender, lungs clear, normal breath sounds, no respiratory distress, no accessory muscle use Pre-Sedation Airway Assessment Smoking Status: Never Smoker Hx of Sleep Apnea: No Short Thick Neck: No Thyro-mental Distance: > 3 Finger Breadths Oral Cavity: WNL Mallampati Classification: Class II ASA Classification: Class II NPO Status Date of Last Intake of Fluids: May 19, 2017 Time of Last Intake of Fluids: 2359 Date of Last Intake of Solids: May 19, 2017 Time of Last Intake of Solids: 2100 Notes The planned sedation has been discussed with the patient. Informed Consent was obtained. I have identified the patient, determined the appropriateness of sedation and have assessed the patient immediately prior to the procedure. All medicine(s) and interventions are by my order.
[2017-05-20] MEDS ORDERED: DILTIAZEM HCL 120 MG CAPCR PO ONE (11:33)
--- NOTE | 2017-05-20 11:40 | Cardiology Follow-Up ---
Subjective Subjective Date of Service: May 20, 2017. Pt evaluation today including: conversation w/ patient, conversation w/ family , physical exam, chart review, lab review, review of studies, review of inpatient medication list Additional Details: Pt seen and examined with daughter at bedside. States that she's had some sob and palpitations overnight but has not been receiving metoprolol as ordered. Denies cp, palpitations, lightheadedness or dizziness. Tele reviewed: atrial fibrillation with RVR Problem List Medical Problems: (1) Atrial fibrillation with RVR Status: Acute Review of Systems Respiratory: + cough, + dyspnea on exertion, No sputum, No shortness of breath , No dyspnea at rest, No hemoptysis Cardiac: + palpitations, No chest pain, No orthopnea, No PND, No edema Objective Vital Signs Last Vital Signs Documentation Date Time Temp Pulse Resp B/P (MAP) Pulse Ox O2 Delivery O2 Flow Rate FiO2 05/20/17 10:50 145 16 107/77 (87) 98 Nasal Cannula 2 05/20/17 07:37 36.7 Physical Exam: General Appearance: WD/WN, no apparent distress Eyes: bilateral eyes normal inspection, bilateral eyes PERRL, bilateral eyes EOMI ENT: normal ENT inspection, hearing grossly normal, pharynx normal Neck: supple, no adenopathy, thyroid normal, no JVD, no carotid bruits, trachea midline Respiratory/Chest: chest non-tender, lungs clear, normal breath sounds, no respiratory distress, no accessory muscle use Cardiovascular: + tachycardia, + irregularly irregular Abdomen: normal bowel sounds, non tender, soft, no organomegaly, no pulsatile mass Extremities: normal inspection, no pedal edema, no calf tenderness Neurologic/Psychiatric: tool die maker II-XII nml as tested, no motor/sensory deficits, alert, normal mood/affect, oriented x 3 Skin: normal color, warm/dry, no rash Lymphatic: no adenopathy Assessment and Plan 1. atrial fibrillation with rvr rates not controlled but has not been receiving metoprolol as ordered, will reiterate no bp holding parameters given the hemodynamics of afib with rvr and the [place] Curve, her BP will actually increase if we are able to decrease her heart rate cont metoprolol succinate Q6 hrs ALHAJI showed small left atrial thrombus, cardioversion obviously aborted explained to patient and her daughter will now need 1 month of therapeutic INR's while on coumadin then repeat ALHAJI and hopeful cardioversion should the thrombus resolve will cont with rate control will also add cardizem CD 120mg daily today not ideal to use calcium channel melina in patient with reduced LV systolic function but given that cardiomyopathy is likely tachycardia induced believe will benefit the patient start coumadin today, do not believe that NOAC's are indicated with the presence of a thrombus but I will research this further 2. NICM presumedly tachycardia induced given duration of symptoms and normal coronary arteries on cath rate control cannot add RODERICK/ARB given bp does not examine as volume overloaded will follow volume status clinically cont to monitor on tele
--- NOTE | 2017-05-20 11:56 | Post Sedation Assessment ---
Post Sedation Assessment General Date of Sedation May 20, 2017. Vital Signs: Vital Signs Past 12 Hours Date Time Temp Pulse Resp B/P (MAP) Pulse Ox O2 Delivery O2 Flow Rate FiO2 05/20/17 10:50 145 16 107/77 (87) 98 Nasal Cannula 2 05/20/17 08:00 Room Air 05/20/17 07:37 36.7 104 18 109/72 (84) 95 Room Air 05/20/17 06:18 108/67 (81) 05/20/17 04:00 Room Air 05/20/17 03:16 36.6 112 18 102/64 (77) 96 Room Air 05/20/17 00:00 Room Air Post Procedure Recovery Score Activity: (2) Moves 4 extremities * Respiration: (2) Deep breath/cough Circulation: (2) +/-20% PreAnes Value Consciousness: (1) Arouseable (by name) Oxygen Saturation: (2) > 92% On Room Air Post Anesthesia Score: 9 Discharge Sedation Level of Care: Fast Track Phase II Post Sedation Plan On clinical assessment, the patient appears to have tolerated the sedation without complications. Patient is recovering as anticipated. Patient will continue to be monitored by nursing and may be discharged when sedation discharge criteria are met per below protocol. Upon Completions of procedure and additional 15 minutes continue every 5 minute vital signs and the P.A.R. score; then discharge to a Phase I or Fast Track to Phase II per the following guidelines: * Discharge Patient to appropriate Phase II area if PAR is 8 or greater or return to pre- procedure baseline. The post - procedure orders will be as directed. * If PAR score is less than 8 or not return to pre-procedure baseline then patient will follow Phase I monitoring till PAR is reached for Phase II. The Phase I may be done in procedure room or may call to secure a Phase I area. * If naloxone or flumazenil are used for reversal, hold in Phase I for an additional 60 -120 minutes before discharge to Phase II. Please call the Sedation Physician to re-evaluate and complete post-note for discharge to Phase II area. Do NOT discharge from procedure sedation or Phase 1 until post- sedation evaluation note is complete by procedure /sedation MD Sedation Discharge Instructions to be given to the patient at discharge to home.
[2017-05-20] MEDS ORDERED: COUGH DROP (SUGAR FREE) LOZ 24 LOZ/1 BOX LOZ ONE (12:27)
--- NOTE | 2017-05-20 13:25 | TEE ---
*NOTICE TO RECEIVING [employer] This information is strictly Confidential and protected under [place] law. [place] law prohibits you from making any further disclosure of this information unless further disclosure is expressly permitted by the written consent of the person to whom it pertains or is authorized by law. A general authorization for the release of medical or other information is not sufficient for this purpose. Hospital accepts no responsibility if the information is made available to any other person, INCLUDING THE PATIENT. Interpretation Summary * Name: SHUN MANDUJANO Study Date: 05/20/2017 10:03 AM BP: 107/77 mmHg * Patient Location: C.2T\S\S243\S\1 HR: 172 * : 1955 (M/d/yyy) Gender: Female Height: 63 in * Age: 62 yrs Ethnicity: CA Weight: 145 lb * Ordering Physician: Johan Navas * Referring Physician: Self, Referred * Performed By: Jaclyn Landon RCS * * Reason For Study: A-FIB * BSA: 1.7 m2 * -- Conclusions -- * Small left atrial appendage thrombus present. * Borderline HERBER velocities averaging 4 m/s. * Moderate mitral regurgitation. Procedure Details * ALHAJI Probe #1 utilized for procedure. * The study was performed in Cardiopulmonary Department. * Time out was conducted by the physician, nurse, and rad technologist with positive identification of patient and procedure. * Informed consent for Transesophageal Echocardiogram was obtained prior to the procedure. * An intravenous line was placed. A topical anesthetic agent was used for oropharangeal anesthesia. A bite block was inserted. * The patient's vital signs, including blood pressure, heart rate, pulse oximetry and cardiac rhythm were monitored throughout the procedure . * Fentanyl 50 mcg was administered for procedural sedation. * Midazolam 3 mg administered for sedation. * The posterior oropharynx was anesthetized using a topical anesthetic spray. A bite guard was inserted. * A multifrequency, multiplane transesopheageal echocardiographic endoscope was inserted and manipulated in the standard fashion to achieve multiplane views. * The transesophageal probe was passed without difficulty. * The usual views were obtained; basal, mid-esophageal, transgastric and aortic views. * The patient tolerated the procedure well without evidence of orophangeal or esophageal trauma. * A 2D transesophageal echocardiogram with spectral and color flow Doppler was performed. * START TIME: 1109 END TIME: 1127 * A 2D transesophageal echocardiogram with Doppler and color flow Doppler was performed. Left Ventricle * The left ventricle is normal in size. * Left ventricular systolic function is moderately reduced. Atria * The left atrial size is normal. * There is a thrombus seen in the left atrial appendage. * Right atrial size is normal. * No ASD detected; PFO is not assessed. Mitral Valve * The mitral valve anatomy is normal. * There is no mitral valve stenosis. * There is moderate mitral regurgitation. Tricuspid Valve * The tricuspid valve is normal in structure and function. Aortic Valve * The aortic valve is normal in structure and function. Pulmonic Valve * The pulmonary valve is not well seen, but the Doppler examination is normal without significant regurgitation or stenosis. Great Vessels * The aortic root and proximal ascending aorta are normal sized. Pericardium * There is no pericardial effusion.
[2017-05-20] MEDS ORDERED: DILTIAZEM BOLUS / DRIP IV STA (16:40)
[2017-05-20] MEDS: WARFARIN SOD 7.5 MG TAB PO SCH (16:42)
--- NOTE | 2017-05-20 16:53 | Progress Note ---
Medicine Progress Note Date & Time of Visit: May 20, 2017 at 16:35. Subjective Pt was seen and examined Lying in bed with no distress Pt said that she feels fine Her HR continues remains elevate Denies any chest pain, palpitation, dizziness and SOB Objective Last 8 Hrs Date Time Temp Pulse Resp B/P (MAP) Pulse Ox O2 Delivery O2 Flow Rate FiO2 05/20/17 16:17 Room Air 05/20/17 15:26 36.6 107 18 100/72 (81) 96 Room Air 05/20/17 12:52 96 Room Air 05/20/17 12:08 132 12 99/64 (76) 96 Room Air 05/20/17 11:50 154 12 100/65 (77) 95 Room Air 05/20/17 11:40 170 12 92/57 (69) 97 Nasal Cannula 2 05/20/17 11:30 144 13 101/77 (85) 96 Nasal Cannula 2 05/20/17 11:27 Nasal Cannula 2 05/20/17 11:26 135 10 94/53 96 Nasal Cannula 2 05/20/17 11:22 155 13 90/33 95 Nasal Cannula 2 05/20/17 11:18 190 17 108/37 94 Nasal Cannula 2 05/20/17 11:13 195 20 112/68 95 Nasal Cannula 2 05/20/17 11:10 36.8 88 16 105/73 (84) 96 Room Air 05/20/17 11:09 190 20 114/65 97 Nasal Cannula 2 05/20/17 10:50 145 16 107/77 (87) 98 Nasal Cannula 2 Physical Exam: General- No acute distress Head- atraumatic Eyes- PERRL, EOMI ENT- oropharynx clear Neck- supple, no JVD Lungs- No wheezing Heart- irregular rhythm Abdomen- normal bowel sounds, soft Extremities- no calf tenderness Neuro- alert, oriented x 3; PERRL, EOMI Skin- warm & dry Laboratory Results: Last 24 Hours Test 05/20/17 05:08 Activated Partial Thromboplast Time 65.8 SECONDS Partial Thromboplastin Ratio 2.5 Assessment & Plan ATRIAL FIBRILLATION WITH RVR Present to the ER with Afib with HR btw 140 to 170 Was starting on Cardizem drip, that was d/c Rate is uncontrolled and remain in Afib Starting on Metoprolol 25 mg PO q6hr On heparin drip Echo pending cardiology on board Plan to go to cardiac cath today (unofficial Echo showed LV dysnfuction) Continue monitor in telemetry keep NPO for now 05/20 Normal cardiac cath Continue to on Afib rate uncontrolled cardiology on board ALHAJI done this morning showed left atrial thrombus, no cardioversion proceed Continue IV heparin, starting on Coumadin Will need to be on anticoagulant for at least 1 month with therapeutic INR's then repeat ALHAJI with hope thrombus resolves, so we can cardiovert her Starting on diltiazem 120 mg Continue metoprol q6 hr continue monitor in tele No ACEI/ARB starting due to low BP DVT PROPHYLAXIS - Heparin gtt CODE STATUS FULL CODE Current Inpatient Medications: Current Inpatient Medications Medications (Trade) Dose Ordered Sig/Callie Route Start Time Stop Time Status Last Admin Dose Admin Acetaminophen (Tylenol Tab) 650 mg Q4H PRN PO 05/18/17 16:30 06/17/17 16:29 Ondansetron HCl (Zofran Inj) 4 mg Q6H PRN IV 05/18/17 16:30 06/17/17 16:29 Heparin Sodium/ Dextrose 500 ml @ 21 mls/hr [id number] PRN IV 05/18/17 17:45 06/17/17 17:44 05/19/17 19:54 21 MLS/HR Metoprolol Succinate (Toprol Xl Tab) 25 mg Q6 PO 05/19/17 18:00 06/18/17 17:59 05/20/17 12:32 25 MG Nitroglycerin (Nitrostat Tab) 0.4 mg Q5M PRN SL 05/19/17 14:15 06/18/17 14:14 Sodium Chloride 1,000 ml @ 125 mls/hr Q8H IV 05/19/17 14:09 06/18/17 14:08 05/20/17 14:09 125 MLS/HR Acetaminophen (Tylenol Tab) 650 mg Q4H PRN PO 05/19/17 14:15 06/18/17 14:14 Sodium Chloride 250 ml @ 999 mls/hr Q16M PRN IV 05/19/17 14:09 06/18/17 14:08 Atropine Sulfate (Atropine Sulfate 0.1mg/ml Inj) 0.6 mg PRN PRN IV 05/19/17 14:15 06/18/17 14:14 Warfarin Sodium (Coumadin Tab) 7.5 mg DAILY@16 PO 05/20/17 16:00 06/19/17 15:59 Diltiazem HCl (Cardizem Cd Cap) 120 mg QAM PO 05/21/17 09:00 06/20/17 08:59
[2017-05-20] MEDS ORDERED: DILTIAZEM HCL 5 MG/ML 5 ML VIAL BOLUS/OMNI IV SCH (17:00)
[2017-05-20] MEDS: DILTIAZEM HCL INJ 125 MG in DEXTROSE 5% 100ML IV PRN (17:17)
[2017-05-20] MEDS: HEPARIN 25,000 UNIT/500ML D5W 500 ML IV PRN (19:05)
[2017-05-20] MEDS ORDERED: LORAZEPAM 0.5 MG TAB PO ONE (22:00)
[2017-05-21] VITALS (9 sets, daily range): BP systolic 99–125; BP diastolic 60–82; PULSE 89–130; TEMP 36.5–37.4; O2SAT 91–97
[2017-05-21] MEDS: METOPROLOL SUCC 25MG EXT REL TAB PO SCH ×4 (00:05→18:29)
[2017-05-21] MEDS: SODIUM CHLORIDE 0.9% 1000ML 1,000 ML IV SCH ×2 (05:53→13:44)
[2017-05-21 06:12] LABS: HEMATOCRIT 40.8 % (37-47); HEMOGLOBIN 13.4 g/dL (12.0-16.0); MEAN CELL VOLUME 95.6 fL (80-100); MEAN CORPUSCULAR HEMOGLOBIN 31.4 pg (25-34); MEAN CORPUSCULAR HGB CONC 32.8 g/dl (32-36); MEAN PLATELET VOLUME 12.4 fL (7.4-10.4); PLATELET COUNT 154 K/uL (130-400); RED CELL DISTRIBUTION WIDTH CV 13.3 % (11.5-14.5); RED CELL DISTRIBUTION WIDTH SD 45.6 fL (36.4-46.3)
[2017-05-21 06:40] LABS: CALCIUM 8.1 mg/dl (8.5-10.1); CREATININE 0.67 mg/dl (0.60-1.20); POTASSIUM 3.7 mmol/L (3.5-5.1)
[2017-05-21 06:43] LABS: INR 1.1 (0.9-1.1)
[2017-05-21] MEDS: HEPARIN 25,000 UNIT/500ML D5W 500 ML IV PRN (07:45)
[2017-05-21] MEDS: DILTIAZEM HCL 120 MG CAPCR PO SCH (09:25)
[2017-05-21] MEDS ORDERED: POTASSIUM CHLORIDE 10 MEQ TABCR PO STA (09:58)
[2017-05-21] MEDS: DILTIAZEM HCL INJ 125 MG in DEXTROSE 5% 100ML IV PRN (12:20)
[2017-05-21] MEDS ORDERED: DILTIAZEM HCL 120 MG CAPCR PO ONE (12:24)
[2017-05-21] MEDS ORDERED: LORAZEPAM 0.5 MG TAB PO STA (12:42)
[2017-05-21] MEDS ORDERED: LORAZEPAM 0.5 MG TAB PO PRN (12:45)
[2017-05-21 14:10] LABS: PTT PATIENT 65.4 SECONDS (21.0-31.0)
--- NOTE | 2017-05-21 14:20 | Cardiology Follow-Up ---
Subjective Subjective Date of Service: May 21, 2017. Pt evaluation today including: conversation w/ patient, conversation w/ family , physical exam, chart review, lab review, review of studies, review of inpatient medication list Additional Details: Pt seen and examined, with at bed side. Pt visually anxious today. States that she's feeling sob which worsens when thinking about her heart problems. Denies cp, palpitations, lightheadedness or dizziness. volunteers that patient has been very anxious for months now and has not been sleeping either, asking for meds to help with both these issues. Tele reviewed: atrial fibrillation variable rates 80's-130's Problem List Medical Problems: (1) Atrial fibrillation with RVR Status: Acute Review of Systems Respiratory: + cough, + dyspnea on exertion, No sputum, No shortness of breath , No dyspnea at rest, No hemoptysis Cardiac: + palpitations, No chest pain, No orthopnea, No PND, No edema Psychiatric: + anxiety Objective Vital Signs Last Vital Signs Documentation Date Time Temp Pulse Resp B/P (MAP) Pulse Ox O2 Delivery O2 Flow Rate FiO2 05/21/17 12:19 36.6 111 16 112/74 (87) 91 Room Air 05/20/17 11:40 2 Physical Exam: General Appearance: WD/WN, no apparent distress Eyes: bilateral eyes normal inspection, bilateral eyes PERRL, bilateral eyes EOMI ENT: normal ENT inspection, hearing grossly normal, pharynx normal Neck: supple, no adenopathy, thyroid normal, no JVD, no carotid bruits, trachea midline Respiratory/Chest: chest non-tender, lungs clear, normal breath sounds, no respiratory distress, no accessory muscle use Cardiovascular: + tachycardia, + irregularly irregular Abdomen: normal bowel sounds, non tender, soft, no organomegaly, no pulsatile mass Extremities: normal inspection, no pedal edema, no calf tenderness Neurologic/Psychiatric: 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 atrial fibrillation with rvr rates not controlled but has not been receiving metoprolol as ordered, will reiterate no bp holding parameters given the hemodynamics of afib with rvr and the Starling Curve, her BP will actually increase if we are able to decrease her heart rate cont metoprolol succinate Q6 hrs ALHAJI showed small left atrial thrombus, cardioversion obviously aborted explained to patient and her daughter will now need 1 month of therapeutic INR's while on coumadin then repeat ALHAJI and hopeful cardioversion should the thrombus resolve will cont with rate control will uptitrate po cardizem to 240mg mg daily today and wean gtt to off cont heparin bridge and coumadin 2. NICM presumedly tachycardia induced given duration of symptoms and normal coronary arteries on cath rate control cannot add RODERICK/ARB given bp does not examine as volume overloaded will follow volume status clinically 3. anxiety/insomnia I will start low dose ativan prn and ambien may benefit from SSRI, will defer to hospitalist expertise cont to monitor on tele
[2017-05-21] MEDS: WARFARIN SOD 7.5 MG TAB PO SCH (16:23)
--- NOTE | 2017-05-21 18:42 | Progress Note ---
Medicine Progress Note Date & Time of Visit: May 21, 2017 at 18:39. Subjective Pt was seen and examined Lying in bed with no distress Pt said that she is having SOB denies any chest pain, palpitation, dizziness Objective Last 8 Hrs Date Time Temp Pulse Resp B/P (MAP) Pulse Ox O2 Delivery O2 Flow Rate FiO2 05/21/17 16:00 Room Air 05/21/17 15:24 37.0 95 20 105/60 (75) 93 Nasal Cannula 2.0 05/21/17 12:19 36.6 111 16 112/74 (87) 91 Room Air 05/21/17 12:00 Room Air Physical Exam: General- No acute distress Head- atraumatic Eyes- PERRL, EOMI ENT- oropharynx clear Neck- supple, no JVD Lungs- Decrease BS Heart- irregular rhythm Abdomen- normal bowel sounds, soft Extremities- no calf tenderness Neuro- alert, oriented x 3; PERRL, EOMI Skin- warm & dry Laboratory Results: Last 24 Hours Test 05/21/17 05:44 05/21/17 13:32 White Blood Count 7.10 K/uL Red Blood Count 4.27 M/uL Hemoglobin 13.4 g/dL Hematocrit 40.8 % Mean Corpuscular Volume 95.6 fL Mean Corpuscular Hemoglobin 31.4 pg Mean Corpuscular Hemoglobin Concent 32.8 g/dl RDW Standard Deviation 45.6 fL RDW Coefficient of Variation 13.3 % Platelet Count 154 K/uL Mean Platelet Volume 12.4 fL Prothrombin Time 12.0 SECONDS Prothromb Time International Ratio 1.1 Activated Partial Thromboplast Time 70.0 SECONDS 65.4 SECONDS Partial Thromboplastin Ratio 2.7 2.5 Sodium Level 139 mmol/L Potassium Level 3.7 mmol/L Chloride Level 110 mmol/L Carbon Dioxide Level 22 mmol/L Anion Gap 7.0 mmol/L Blood Urea Nitrogen 9 mg/dl Creatinine 0.67 mg/dl Est Creatinine Clear Calc Drug Dose 82.8 ml/min Estimated GFR () 109.2 Estimated GFR (Non- 94.2 BUN/Creatinine Ratio 13.8 Random Glucose 124 mg/dl Calcium Level 8.1 mg/dl Assessment & Plan ATRIAL FIBRILLATION WITH RVR Present to the ER with Afib with HR btw 140 to 170 Was starting on Cardizem drip, that was d/c Rate is uncontrolled and remain in Afib Starting on Metoprolol 25 mg PO q6hr On heparin drip Echo pending cardiology on board Plan to go to cardiac cath today (unofficial Echo showed LV dysnfuction) Continue monitor in telemetry keep NPO for now 05/21 rate improved Normal cardiac cath Continue to on Afib cardiology on board ALHAJI done this morning showed left atrial thrombus, no cardioversion proceed Continue IV heparin, starting on Coumadin Will need to be on anticoagulant for at least 1 month with therapeutic INR's then repeat ALHAJI with hope thrombus resolves, so we can cardiovert her Continue diltiazem 120 mg was starting on cardizem drip Continue metoprol q6 hr continue monitor in tele No ACEI/ARB starting due to low BP IVF D/C Will give lasix x1 DVT PROPHYLAXIS - Heparin gtt CODE STATUS FULL CODE Current Inpatient Medications: Current Inpatient Medications Medications (Trade) Dose Ordered Sig/Callie Route Start Time Stop Time Status Last Admin Dose Admin Acetaminophen (Tylenol Tab) 650 mg Q4H PRN PO 05/18/17 16:30 06/17/17 16:29 Ondansetron HCl (Zofran Inj) 4 mg Q6H PRN IV 05/18/17 16:30 06/17/17 16:29 Heparin Sodium/ Dextrose 500 ml @ 20 mls/hr Q24H PRN IV 05/18/17 17:45 06/17/17 17:44 05/21/17 07:45 20 MLS/HR Metoprolol Succinate (Toprol Xl Tab) 25 mg Q6 PO 05/19/17 18:00 06/18/17 17:59 05/21/17 18:29 25 MG Nitroglycerin (Nitrostat Tab) 0.4 mg Q5M PRN SL 05/19/17 14:15 06/18/17 14:14 Sodium Chloride 1,000 ml @ 125 mls/hr Q8H IV 05/19/17 14:09 06/18/17 14:08 05/21/17 13:44 125 MLS/HR Acetaminophen (Tylenol Tab) 650 mg Q4H PRN PO 05/19/17 14:15 06/18/17 14:14 Sodium Chloride 250 ml @ 999 mls/hr Q16M PRN IV 05/19/17 14:09 06/18/17 14:08 Atropine Sulfate (Atropine Sulfate 0.1mg/ml Inj) 0.6 mg PRN PRN IV 05/19/17 14:15 06/18/17 14:14 Warfarin Sodium (Coumadin Tab) 7.5 mg DAILY@16 PO 05/20/17 16:00 06/19/17 15:59 05/21/17 16:23 7.5 MG Diltiazem HCl (Cardizem Cd Cap) 120 mg QAM PO 05/21/17 09:00 06/20/17 08:59 05/21/17 09:25 120 MG Diltiazem HCl 125 mg/Dextrose 125 ml @ 0 mls/hr Q0M PRN IV 05/20/17 17:00 06/19/17 16:59 05/21/17 12:20 5 MLS/HR Lorazepam (Ativan Tab) 0.5 mg Q6 PRN PO 05/21/17 12:45 06/20/17 12:44 Zolpidem Tartrate (Ambien Tab) 5 mg HS PRN PO 05/21/17 12:45 06/20/17 12:44
[2017-05-21] MEDS ORDERED: FUROSEMIDE INJ 20 MG in SYRINGE 0 ML IV ONE (18:45)
[2017-05-21] MEDS ORDERED: LEVALBUTEROL 0.63MG/3 ML NEB INH STA (19:07)
--- NOTE | 2017-05-21 21:28 | DIAGNOSTIC IMAGING REPORT ---
SINGLE VIEW CHEST CLINICAL HISTORY: Dyspnea. FINDINGS: An AP, portable, upright chest radiograph is compared to study dated 05/18/2017. The examination is degraded by portable technique and patient rotation. The heart appears mildly enlarged. There is congestion of the central pulmonary vasculature. There are layering pleural effusions with bibasilar consolidation, new from 05/18/2017. No pneumothorax is seen. The skeletal structures are osteopenic. The bony thorax is grossly intact. IMPRESSION: 1. The heart appears mildly enlarged and there is mild pulmonary vascular congestion. 2. There are layering pleural effusions with bibasilar consolidation which likely represents atelectasis. Correlate clinically for evidence of superimposed pneumonia. This finding is new from 05/18/2017. Electronically signed by: Dex Nix M.D. 05/21/2017 9:26 PM Dictated Date/Time: 05/21/2017 9:25 PM
[2017-05-21] MEDS: ZOLPIDEM TARTRATE 5 MG TAB PO PRN (22:18)
[2017-05-22] VITALS (8 sets, daily range): BP systolic 101–119; BP diastolic 51–72; PULSE 89–120; TEMP 36.6–37.1; O2SAT 90–97
[2017-05-22] MEDS: METOPROLOL SUCC 25MG EXT REL TAB PO SCH ×2 (01:04→06:41)
[2017-05-22 07:44] LABS: PTT PATIENT 70.6 SECONDS (21.0-31.0)
[2017-05-22] MEDS: DILTIAZEM HCL 120 MG CAPCR PO SCH (07:50)
[2017-05-22 08:03] LABS: INR 1.9 (0.9-1.1)
[2017-05-22] MEDS: HEPARIN 25,000 UNIT/500ML D5W 500 ML IV PRN (08:16)
[2017-05-22] MEDS ORDERED: POTASSIUM CHLORIDE 20 MEQ TABCR PO ONE (09:00)
[2017-05-22] MEDS ORDERED: FUROSEMIDE INJ 20 MG in SYRINGE 0 ML IV ONE (09:30)
[2017-05-22] MEDS ORDERED: DILTIAZEM HCL 120 MG CAPCR PO ONE (10:37)
[2017-05-22] MEDS ORDERED: METOPROLOL SUCC 25MG EXT REL TAB PO ONE (10:39)
[2017-05-22 11:49] LABS: CREATININE 0.77 mg/dl (0.60-1.20); POTASSIUM 3.8 mmol/L (3.5-5.1)
--- NOTE | 2017-05-22 12:48 | Cardiology Follow-Up ---
Subjective Subjective Date of Service: May 22, 2017. Pt evaluation today including: conversation w/ patient, physical exam, chart review, lab review, review of studies, review of inpatient medication list Additional Details: Pt seen and examined, states that she's feeling better today. Episode of shortness of breath last PM, resolved with lasix. States her anxiety is also now better controlled. Denies cp, lightheadedness or dizziness. Tele reviewed: atrial fibrillation with rates improving to 90's-110's this AM Problem List Medical Problems: (1) Atrial fibrillation with RVR Status: Acute Review of Systems Respiratory: + cough, + dyspnea on exertion, No sputum, No shortness of breath , No dyspnea at rest, No hemoptysis Cardiac: + palpitations, No chest pain, No orthopnea, No PND, No edema Psychiatric: + anxiety Objective Vital Signs Last Vital Signs Documentation Date Time Temp Pulse Resp B/P (MAP) Pulse Ox O2 Delivery O2 Flow Rate FiO2 05/22/17 11:57 36.6 120 16 105/68 (80) 96 Nasal Cannula 2.0 Physical Exam: General Appearance: WD/WN, no apparent distress Eyes: bilateral eyes normal inspection, bilateral eyes PERRL, bilateral eyes EOMI ENT: normal ENT inspection, hearing grossly normal, pharynx normal Neck: supple, no adenopathy, thyroid normal, no JVD, no carotid bruits, trachea midline Respiratory/Chest: chest non-tender, lungs clear, normal breath sounds, no respiratory distress, no accessory muscle use Cardiovascular: + tachycardia, + irregularly irregular Abdomen: normal bowel sounds, non tender, soft, no organomegaly, no pulsatile mass Extremities: normal inspection, no pedal edema, no calf tenderness Neurologic/Psychiatric: timing adjuster II-XII nml as tested, no motor/sensory deficits, alert, normal mood/affect, oriented x 3 Skin: normal color, warm/dry, no rash Lymphatic: no adenopathy Assessment and Plan 1. atrial fibrillation with rvr rates improving will change metoprolol succinate to 50mg bid today for ease of use as outpatient, can still uptitrate if necessary ALHAJI showed small left atrial thrombus, cardioversion obviously aborted explained to patient and her daughter/ will now need 1 month of therapeutic INR's while on coumadin then repeat ALHAJI and hopeful cardioversion should the thrombus resolve INR at 1.9 today cardizem gtt off will give cardizem cd 240mg today, if rates remain elevated this PM will given an additional 120mg 2. NICM presumedly tachycardia induced given duration of symptoms and normal coronary arteries on cath rate control cannot add RODERICK/ARB given bp does not examine as volume overloaded will follow volume status clinically 3. anxiety/insomnia I will start low dose ativan prn and ambien may benefit from SSRI, will defer to hospitalist expertise cont to monitor on tele
[2017-05-22 14:41] LABS: PTT PATIENT 56.6 SECONDS (21.0-31.0)
[2017-05-22] MEDS ORDERED: NURSING VERBAL MED ORDER ONE (16:00)
--- NOTE | 2017-05-22 16:16 | Progress Note ---
Medicine Progress Note Date & Time of Visit: May 22, 2017 at 09:07. Subjective Pt was seen and examined Sitting in bed with no distress Pt said that she feels much better today She said that she does not have any SOB Denies any chest pain, palpitation, dizziness and SOB Objective Last 8 Hrs Date Time Temp Pulse Resp B/P (MAP) Pulse Ox O2 Delivery O2 Flow Rate FiO2 05/22/17 12:00 Nasal Cannula 2.0 05/22/17 11:57 36.6 120 16 105/68 (80) 96 Nasal Cannula 2.0 05/22/17 08:11 37.1 115 18 119/72 (88) 90 Room Air Physical Exam: General- No acute distress Head- atraumatic Eyes- PERRL, EOMI ENT- oropharynx clear Neck- supple, no JVD Lungs- No wheezing Heart- irregular rhythm Abdomen- normal bowel sounds, soft Extremities- no calf tenderness Neuro- alert, oriented x 3; PERRL, EOMI Skin- warm & dry Laboratory Results: Last 24 Hours Test 05/22/17 06:59 05/22/17 11:04 05/22/17 14:04 Prothrombin Time 19.7 SECONDS Prothromb Time International Ratio 1.9 Activated Partial Thromboplast Time 70.6 SECONDS 56.6 SECONDS Partial Thromboplastin Ratio 2.7 2.2 Sodium Level 138 mmol/L Potassium Level 3.8 mmol/L Chloride Level 103 mmol/L Carbon Dioxide Level 27 mmol/L Anion Gap 8.0 mmol/L Blood Urea Nitrogen 8 mg/dl Creatinine 0.77 mg/dl Est Creatinine Clear Calc Drug Dose 70.7 ml/min Estimated GFR () 95.9 Estimated GFR (Non- 82.8 BUN/Creatinine Ratio 9.8 Random Glucose 142 mg/dl Calcium Level 9.0 mg/dl Assessment & Plan ATRIAL FIBRILLATION WITH RVR Present to the ER with Afib with HR btw 140 to 170 Was starting on Cardizem drip, that was d/c Rate is uncontrolled and remain in Afib Starting on Metoprolol 25 mg PO q6hr On heparin drip Echo pending cardiology on board Plan to go to cardiac cath today (unofficial Echo showed LV dysnfuction) Continue monitor in telemetry keep NPO for now 05/22 rate improved Normal cardiac cath Continue to on Afib cardiology on board ALHAJI done this morning showed left atrial thrombus, no cardioversion proceed Continue IV heparin, starting on Coumadin Will need to be on anticoagulant for at least 1 month with therapeutic INR's then repeat ALHAJI with hope thrombus resolves, so we can cardiovert her Diltiazem increase to 240mg daily was starting on cardizem drip, that was D/C Continue metoprol q6 hr continue monitor in tele No ACEI/ARB starting due to low BP IVF D/C INR 1.9 Will give coumadin 5 mg today ECHO showed * The left ventricle is normal in size. * There is moderate to severe global hypokinesis of the left ventricle. * Ejection Fraction = 35-40%. * The left atrium is moderately dilated. * The right atrium is mild to moderately dilated. * There is moderate to severe mitral regurgitation. * There is mild tricuspid regurgitation. * The inferior vena cava is mildly dilated. DYSPNEA Related to IVF CXR showed mild pulmonary vascular congestion. IVF d/c Lasix given Resolved ANXIETY Ativan prn helps Will start on low dose Zoloft 25mg daily, Side effect discussed with pt DVT PROPHYLAXIS - Heparin gtt/Coumadin CODE STATUS FULL CODE Current Inpatient Medications: Current Inpatient Medications Medications (Trade) Dose Ordered Sig/Callei Route Start Time Stop Time Status Last Admin Dose Admin Acetaminophen (Tylenol Tab) 650 mg Q4H PRN PO 05/18/17 16:30 06/17/17 16:29 Ondansetron HCl (Zofran Inj) 4 mg Q6H PRN IV 05/18/17 16:30 06/17/17 16:29 Heparin Sodium/ Dextrose 500 ml @ 19 mls/hr Q24H PRN IV 05/18/17 17:45 06/17/17 17:44 05/22/17 08:16 19 MLS/HR Nitroglycerin (Nitrostat Tab) 0.4 mg Q5M PRN SL 05/19/17 14:15 06/18/17 14:14 Acetaminophen (Tylenol Tab) 650 mg Q4H PRN PO 05/19/17 14:15 06/18/17 14:14 Sodium Chloride 250 ml @ 999 mls/hr Q16M PRN IV 05/19/17 14:09 06/18/17 14:08 Atropine Sulfate (Atropine Sulfate 0.1mg/ml Inj) 0.6 mg PRN PRN IV 05/19/17 14:15 06/18/17 14:14 Diltiazem HCl 125 mg/Dextrose 125 ml @ 0 mls/hr Q0M PRN IV 05/20/17 17:00 06/19/17 16:59 05/21/17 12:20 5 MLS/HR Lorazepam (Ativan Tab) 0.5 mg Q6 PRN PO 05/21/17 12:45 06/20/17 12:44 Zolpidem Tartrate (Ambien Tab) 5 mg HS PRN PO 05/21/17 12:45 06/20/17 12:44 05/21/17 22:18 5 MG Diltiazem HCl (Cardizem Cd Cap) 240 mg QAM PO 05/23/17 09:00 06/20/17 08:59 Metoprolol Succinate (Toprol Xl Tab) 50 mg BID PO 05/22/17 21:00 06/18/17 17:59 Warfarin Sodium (Coumadin Tab) 5 mg DAILY@16 PO 05/22/17 16:00 06/19/17 15:59 Miscellaneous Information (Nursing Verbal Med Order) 1 ea ONE ONCE N/A 05/22/17 16:00 05/22/17 16:01 UNV
[2017-05-22] MEDS: WARFARIN SOD 5 MG TAB PO SCH (16:17)
[2017-05-22] MEDS: ZOLPIDEM TARTRATE 5 MG TAB PO PRN (20:26)
[2017-05-22] MEDS: METOPROLOL SUCC 50MG EXT REL TAB PO SCH (20:26)
[2017-05-22] MEDS ORDERED: SERTRALINE HCL 50 MG TAB PO SCH (21:00)
[2017-05-23 03:33] VITALS: BP 94/54; PULSE 88; TEMP 36.9; O2SAT 91
[2017-05-23 07:43] LABS: HEMATOCRIT 38.3 % (37-47); HEMOGLOBIN 12.7 g/dL (12.0-16.0); MEAN CELL VOLUME 94.6 fL (80-100); MEAN CORPUSCULAR HEMOGLOBIN 31.4 pg (25-34); MEAN CORPUSCULAR HGB CONC 33.2 g/dl (32-36); PLATELET COUNT 133 K/uL (130-400); RED CELL DISTRIBUTION WIDTH SD 44.9 fL (36.4-46.3); WHITE BLOOD COUNT 5.31 K/uL (4.8-10.8)
[2017-05-23 07:45] VITALS: BP 105/74; PULSE 90; TEMP 36.9; O2SAT 95
[2017-05-23 08:02] LABS: INR 2.8 (0.9-1.1)
[2017-05-23 08:05] LABS: PTT PATIENT 74.4 SECONDS (21.0-31.0)
[2017-05-23] MEDS: METOPROLOL SUCC 50MG EXT REL TAB PO SCH (08:13)
[2017-05-23 08:16] LABS: CALCIUM 8.7 mg/dl (8.5-10.1); CREATININE 0.52 mg/dl (0.60-1.20); POTASSIUM 3.8 mmol/L (3.5-5.1)
[2017-05-23] MEDS: HEPARIN 25,000 UNIT/500ML D5W 500 ML IV PRN (08:16)
[2017-05-23] MEDS ORDERED: DILTIAZEM HCL 240 MG CAPCR PO SCH (09:00)
[2017-05-23] MEDS ORDERED: DILTIAZEM HCL 120 MG CAPCR PO ONE (11:15)
[2017-05-23 11:20] VITALS: BP 101/66; PULSE 106; TEMP 36.9; O2SAT 94
--- NOTE | 2017-05-23 12:17 | Cardiology Follow-Up ---
Subjective Subjective Date of Service: May 23, 2017. Pt evaluation today including: conversation w/ patient, physical exam, chart review, lab review, review of studies, review of inpatient medication list Additional Details: Pt seen and examined, states that she's feeling well today. No palpitations, chest pain, palpitations, lightheadedness or dizziness. Tele reviewed: atrial fibrillation with rates in 90's-110's Problem List Medical Problems: (1) Atrial fibrillation with RVR Status: Acute Review of Systems Respiratory: + cough, + dyspnea on exertion, No sputum, No shortness of breath , No dyspnea at rest, No hemoptysis Cardiac: + palpitations, No chest pain, No orthopnea, No PND, No edema Psychiatric: + anxiety Objective Vital Signs Last Vital Signs Documentation Date Time Temp Pulse Resp B/P (MAP) Pulse Ox O2 Delivery O2 Flow Rate FiO2 05/23/17 11:20 36.9 106 18 101/66 (78) 94 Room Air 05/23/17 07:45 2.0 Physical Exam: General Appearance: WD/WN, no apparent distress Eyes: bilateral eyes normal inspection, bilateral eyes PERRL, bilateral eyes EOMI ENT: normal ENT inspection, hearing grossly normal, pharynx normal Neck: supple, no adenopathy, thyroid normal, no JVD, no carotid bruits, trachea midline Respiratory/Chest: chest non-tender, lungs clear, normal breath sounds, no respiratory distress, no accessory muscle use Cardiovascular: + tachycardia, + irregularly irregular Abdomen: normal bowel sounds, non tender, soft, no organomegaly, no pulsatile mass Extremities: normal inspection, no pedal edema, no calf tenderness 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 atrial fibrillation with rvr rates improving will increase cardizem cd to 360mg daily today cont metoprolol succinate 50mg bid INR therapeutic, heparin gtt d/c'ed if rates continue to improve this PM after increasing cardizem dose and patient is feeling well, would be ok to d/c to home from a cardiac standpoint. 2. NICM presumedly tachycardia induced given duration of symptoms and normal coronary arteries on cath rate control cannot add RODERICK/ARB given bp does not examine as volume overloaded will follow volume status clinically 3. anxiety/insomnia I will start low dose ativan prn and ambien may benefit from SSRI, will defer to hospitalist expertise cont to monitor on tele
[2017-05-23 13:25] VITALS: O2SAT 95
[2017-05-23 15:33] VITALS: BP 99/64; PULSE 97; TEMP 37; O2SAT 93
[2017-05-23] MEDS: WARFARIN SOD 5 MG TAB PO SCH (16:13)
--- NOTE | 2017-05-23 16:36 | Progress Note ---
Medicine Progress Note Date & Time of Visit: May 23, 2017 at 16:27. Subjective Pt was seen and examined Sitting in bed with no distress Pt said that she feels fine Denies any chest pain, palpitation, dizziness and SOB Objective Last 8 Hrs Date Time Temp Pulse Resp B/P (MAP) Pulse Ox O2 Delivery O2 Flow Rate FiO2 05/23/17 15:33 37.0 97 18 99/64 (76) 93 Room Air 05/23/17 13:25 95 05/23/17 12:00 Room Air 05/23/17 11:20 36.9 106 18 101/66 (78) 94 Room Air Physical Exam: General- No acute distress Head- atraumatic Eyes- PERRL, EOMI ENT- oropharynx clear Neck- supple, no JVD Lungs- No wheezing Heart- irregular rhythm Abdomen- normal bowel sounds, soft Extremities- no calf tenderness Neuro- alert, oriented x 3; PERRL, EOMI Skin- warm & dry Laboratory Results: Last 24 Hours Test 05/23/17 07:10 White Blood Count 5.31 K/uL Red Blood Count 4.05 M/uL Hemoglobin 12.7 g/dL Hematocrit 38.3 % Mean Corpuscular Volume 94.6 fL Mean Corpuscular Hemoglobin 31.4 pg Mean Corpuscular Hemoglobin Concent 33.2 g/dl RDW Standard Deviation 44.9 fL RDW Coefficient of Variation 13.0 % Platelet Count 133 K/uL Mean Platelet Volume 12.0 fL Prothrombin Time 28.8 SECONDS Prothromb Time International Ratio 2.8 Activated Partial Thromboplast Time 74.4 SECONDS Partial Thromboplastin Ratio 2.9 Sodium Level 139 mmol/L Potassium Level 3.8 mmol/L Chloride Level 104 mmol/L Carbon Dioxide Level 26 mmol/L Anion Gap 9.0 mmol/L Blood Urea Nitrogen 8 mg/dl Creatinine 0.52 mg/dl Est Creatinine Clear Calc Drug Dose 104.7 ml/min Estimated GFR () 118.7 Estimated GFR (Non- 102.4 BUN/Creatinine Ratio 15.0 Random Glucose 106 mg/dl Calcium Level 8.7 mg/dl Assessment & Plan ATRIAL FIBRILLATION WITH RVR Present to the ER with Afib with HR btw 140 to 170 Was starting on Cardizem drip, that was d/c Rate is uncontrolled and remain in Afib Starting on Metoprolol 25 mg PO q6hr On heparin drip Echo pending cardiology on board Plan to go to cardiac cath today (unofficial Echo showed LV dysnfuction) Continue monitor in telemetry keep NPO for now 05/23 Rate improved Normal cardiac cath Continue to on Afib cardiology on board ALHAJI done this morning showed left atrial thrombus, no cardioversion proceed D/C IV heparin Continue coumadin Will need to be on anticoagulant for at least 1 month with therapeutic INR's then repeat ALHAJI with hope thrombus resolves, so we can cardiovert her Diltiazem increase to 360 mg daily was starting on cardizem drip, that was D/C Starting on metoprolol 50mg BID No ACEI/ARB starting due to low BP IVF D/C INR 2.8 Will discharge on Coumadin 2.5 mg Check INR On Tue Follow up with cardiology in 2 weeks ECHO showed * The left ventricle is normal in size. * There is moderate to severe global hypokinesis of the left ventricle. * Ejection Fraction = 35-40%. * The left atrium is moderately dilated. * The right atrium is mild to moderately dilated. * There is moderate to severe mitral regurgitation. * There is mild tricuspid regurgitation. * The inferior vena cava is mildly dilated. DYSPNEA Related to IVF CXR showed mild pulmonary vascular congestion. IVF d/c Lasix given Resolved ANXIETY Ativan prn helps Continue Zoloft 25mg daily, Side effect discussed with pt DVT PROPHYLAXIS - Heparin gtt/Coumadin CODE STATUS FULL CODE DISPOSITION Will discharge home today Current Inpatient Medications: Current Inpatient Medications Medications (Trade) Dose Ordered Sig/Callie Route Start Time Stop Time Status Last Admin Dose Admin Acetaminophen (Tylenol Tab) 650 mg Q4H PRN PO 05/18/17 16:30 06/17/17 16:29 Ondansetron HCl (Zofran Inj) 4 mg Q6H PRN IV 05/18/17 16:30 06/17/17 16:29 Nitroglycerin (Nitrostat Tab) 0.4 mg Q5M PRN SL 05/19/17 14:15 06/18/17 14:14 Sodium Chloride 250 ml @ 999 mls/hr Q16M PRN IV 05/19/17 14:09 06/18/17 14:08 Atropine Sulfate (Atropine Sulfate 0.1mg/ml Inj) 0.6 mg PRN PRN IV 05/19/17 14:15 06/18/17 14:14 Lorazepam (Ativan Tab) 0.5 mg Q6 PRN PO 05/21/17 12:45 06/20/17 12:44 Zolpidem Tartrate (Ambien Tab) 5 mg HS PRN PO 05/21/17 12:45 06/20/17 12:44 05/22/17 20:26 5 MG Metoprolol Succinate (Toprol Xl Tab) 50 mg BID PO 05/22/17 21:00 06/18/17 17:59 05/23/17 08:13 50 MG Warfarin Sodium (Coumadin Tab) 5 mg DAILY@16 PO 05/22/17 16:00 06/19/17 15:59 05/23/17 16:13 5 MG Sertraline HCl (Zoloft Tab) 25 mg QPM PO 05/22/17 21:00 06/21/17 20:59 05/22/17 20:26 25 MG Diltiazem HCl (Cardizem Cd Cap) 360 mg QAM PO 05/24/17 09:00 06/20/17 08:59
[2017-05-23] MEDS ORDERED: ZLF50 PO (16:39)
[2017-05-23] MEDS ORDERED: CMD/25 PO (16:39)
[2017-05-23] MEDS ORDERED: TPRSR50 PO (16:39)
[2017-05-23] MEDS ORDERED: DLTCD/240 PO (16:39)
--- NOTE | 2017-05-23 17:01 | Discharge Instructions ---
Discharge Instructions Date of Service May 23, 2017. Admission Reason for Admission: Atrial Fibrillation With Rvr Discharge Discharge Diagnosis / Problem: Atrial Fibrillation with RVR, Anxiety, Dypnea Discharge Goals Goal(s): Decrease discomfort, Improve function, Improve disease control Activity Recommendations Activity Limitations: resume your previous activity (as tolerated) . Instructions / Follow-Up Instructions / Follow-Up Follow up with your new primary care provider Dr. Stevens on 05/30 @ 2:25 pm at the [facility] Follow up with Cardiology dr. Navas on 05/31 @ 12:45 pm at the [address] [address] Follow up with the Coumadin clinic Check INR on Tuesday Starting on Zoloft to control your anxiety, your physician will titrate it between 4 to 6 weeks if needed Common side effect for Zoloft are Nausea/Vomiting/Diarrhea/Dizziness/Decrease sex drive/fatigue Medication Instructions: Coumadin * Warfarin is a medicine prescribed to prevent blood clots * Warfarin will thin your blood and help prevent new clots * Take your medications exactly as directed * Never skip a dose. Never take a double dose. If you miss a dose, take it as soon as you remember * It is important for your doctor to monitor your prothrombin time (PT). This is a lab test * Keep your appointment for lab tests Risk of Adverse Drug Reactions and Interactions: * Warfarin increases your risk of bleeding * The food you eat and other medications you take can affect how Warfarin works in your body * Ask your doctor about daily aspirin therapy * It is very important to talk with your doctor about all of the other medicines , antibiotics, vitamins or herbal products that you are taking * All of your medication must be approved by your doctor, including new medicines, as well as medicines you have taken before you started taking Warfarin * Avoid any NSAIDs such as Motrin, Ibuprofen, Naproxen, Aleve, Advil..) due to increase risk of bleeding Diet: * In order for Warfarin to work properly, it is important to keep your intake of Vitamin K as consistent as possible * You should avoid any sudden change in Vitamin K intake * Report any significant changes in your diet or weight to your doctor * Avoid any green leaf Call your Primary Care doctor if you experience any of the following: * Swelling or Pain in your leg * Sudden, continuous pain deep in a muscle * Pain that worsens when you are active or when you stand still for a long time * Chest Pain * Sudden Shortness of Breath * Rapid or pounding heart beat * Fainting * Dizziness * Cough with blood or bloody sputum * Sweating more than normal * Bruises * Heavy or uncontrolled bleeding * Blood in your urine, stool or vomit * Black or tarry stools * avoid any activity that put you at risk of falls Follow Up: It is important for you to keep your follow up appointments with your medical provider. Current Hospital Diet Patient's current hospital diet: AHA Diet (Heart Healthy) Discharge Diet Recommended Diet: AHA Diet (Heart Healthy) Pending Studies Studies pending at discharge: no Medical Emergencies . Who to Call and When: Medical Emergencies: If at any time you feel your situation is an emergency, please call 911 immediately. . Non-Emergent Contact Non-Emergency issues call your: Primary Care Provider Call Non-Emergent contact if: you have any medication questions . . "Provider Documentation" section prepared by Petra Soliz. . VTE Core Measure Inpt VTE Proph given/why not?: Warfarin (Coumadin), Other Anticoagulation ( heparin drip)
[2017-05-23 17:27] VITALS: BP 99/64; PULSE 97; TEMP 37; O2SAT 93
[2017-05-24] MEDS ORDERED: DILTIAZEM HCL 240 MG CAPCR PO SCH (09:00)
--- NOTE | 2017-05-26 09:46 | Discharge Summary ---
Discharge Summary Date of Service May 26, 2017. Discharge Summary Admission Date: May 18, 2017 at 16:20 Discharge Date: May 23, 2017 Discharge Disposition: Home Principal Diagnosis: ATRIAL FIBRILLATION WITH RVR Secondary Diagnoses/Problems: DYSPNEA ANXIETY Procedures: SINGLE VIEW CHEST CLINICAL HISTORY: Dyspnea. FINDINGS: An AP, portable, upright chest radiograph is compared to study dated 05/18/2017. The examination is degraded by portable technique and patient rotation. The heart appears mildly enlarged. There is congestion of the central pulmonary vasculature. There are layering pleural effusions with bibasilar consolidation, new from 05/18/2017. No pneumothorax is seen. The skeletal structures are osteopenic. The bony thorax is grossly intact. IMPRESSION: 1. The heart appears mildly enlarged and there is mild pulmonary vascular congestion. 2. There are layering pleural effusions with bibasilar consolidation which likely represents atelectasis. Correlate clinically for evidence of superimposed pneumonia. This finding is new from 05/18/2017. Electronically signed by: Dex Nix M.D. 05/21/2017 9:26 PM Dictated Date/Time: 05/21/2017 9:25 PM ECHO Interpretation Summary * Name: SHUN MANDUJANO Study Date: 05/20/2017 10:03 AM BP: 107/77 mmHg * Patient Location: [facility]\\S\\43\\S\\1 HR: 172 * : 1955 (M/d/yyyy) Gender: Female Height: 63 in * Age: 62 yrs Ethnicity: [place] Weight: 145 lb * Ordering Physician: Johan Navas * Referring Physician: Self, Referred * Performed By: Jaclyn Landon RCS * * Reason For Study: A-FIB * BSA: 1.7 m2 * -- Conclusions -- * Small left atrial appendage thrombus present. * Borderline HERBER velocities averaging 4 m/s. * Moderate mitral regurgitation. Procedure Details * ALHAJI Probe #1 utilized for procedure. * The study was performed in Cardiopulmonary Department. * Time out was conducted by the physician, nurse, and technician's helper with positive identification of patient and procedure. * Informed consent for Transesophageal Echocardiogram was obtained prior to the procedure. * An intravenous line was placed. A topical anesthetic agent was used for oropharangeal anesthesia. A bite block was inserted. * The patient's vital signs, including blood pressure, heart rate, pulse oximetry and cardiac rhythm were monitored throughout the procedure . * Fentanyl 50 mcg was administered for procedural sedation. * Midazolam 3 mg administered for sedation. * The posterior oropharynx was anesthetized using a topical anesthetic spray. A bite guard was inserted. * A multifrequency, multiplane transesopheageal echocardiographic endoscope was inserted and manipulated in the standard fashion to achieve multiplane views. * The transesophageal probe was passed without difficulty. * The usual views were obtained; basal, mid-esophageal, transgastric and aortic views. * The patient tolerated the procedure well without evidence of orophangeal or esophageal trauma. * A 2D transesophageal echocardiogram with spectral and color flow Doppler was performed. * START TIME: 1109 END TIME: 1127 * A 2D transesophageal echocardiogram with Doppler and color flow Doppler was performed. Left Ventricle * The left ventricle is normal in size. * Left ventricular systolic function is moderately reduced. Atria * The left atrial size is normal. * There is a thrombus seen in the left atrial appendage. * Right atrial size is normal. * No ASD detected; PFO is not assessed. Mitral Valve * The mitral valve anatomy is normal. * There is no mitral valve stenosis. * There is moderate mitral regurgitation. Tricuspid Valve * The tricuspid valve is normal in structure and function. Aortic Valve * The aortic valve is normal in structure and function. Pulmonic Valve * The pulmonary valve is not well seen, but the Doppler examination is normal without significant regurgitation or stenosis. Great Vessels * The aortic root and proximal ascending aorta are normal sized. Pericardium * There is no pericardial effusion. Created: Initialized: 05/20/17; 1325 <Electronically signed by Johan Navas D.O.> Signed: 05/22/17 2241 Johan Navas D.O. Medication Reconciliation New Medications: Diltiazem Hcl (Diltiazem Cd) 240 Mg Capcr 360 MG PO QAM for 30 Days Metoprolol Succinate (Metoprolol Succinate ER) 50 Mg Tabcr 50 MG PO BID for 30 Days Sertraline HCl (Sertraline HCl) 50 Mg Tab 25 MG PO QPM for 30 Days, TAB Warfarin Sod (Coumadin) 2.5 Mg Tab 1 TAB PO DAILY for 30 Days, #30 TAB 3 Refills Admission Information HPI (per Admitting provider): 62 year old female who was sent to the ED by her PCPs office for new onset atrial fibrillation with RVR. Patient reports that over the past few months she has noticed exertional shortness of breath with chest pressure. Symptoms would resolve with rest. She denies any radiation of the pain into her jaw, neck, or arm. No associated lightheadedness, dizziness, diaphoresis, nausea, or syncopal events. A few days ago, patient took her BP and pulse at home and noticed that her heart rate was in the 130s. She denies feeling palpitations. She was evaluated in her PCPs office today and was found to be in atrial fibrillation with RVR. She was sent to the ED for further evaluation. She noted lower extremity edema that will come and go. She denies orthopnea. She developed a dry cough a couple of weeks ago. No fevers, chills, or sputum production. She denies abdominal pain, vomiting, or diarrhea. No urinary symptoms. She denies any bleeding problems in the past. In the ED, patient's EKG shows atrial fibrillation with rates in the 170s. She was given Cardizem 10mg IV bolus and started on a drip. HR remains in the 130s at the time of my exam. Labs are unremarkable. Physical Exam (per Admitting): General Appearance: WD/WN, no apparent distress Head: normocephalic, atraumatic Eyes: normal inspection, EOMI, sclerae normal ENT: hearing grossly normal, + pertinent finding (mucous membranes moist) Neck: supple, no JVD, trachea midline Respiratory/Chest: lungs clear, normal breath sounds, no respiratory distress Cardiovascular: normal peripheral pulses, + tachycardia, + irregularly irregular, + pertinent finding (trace edema BLLE) Abdomen/GI: normal bowel sounds, non tender, soft, no organomegaly Extremities/Musculoskelatal: normal inspection, no calf tenderness, normal capillary refill Neurologic/Psych: no motor/sensory deficits, alert, normal mood/affect, oriented x 3 Skin: normal color, warm/dry Hospital Course ATRIAL FIBRILLATION WITH RVR Present to the ER with Afib with HR btw 140 to 170 Was starting on Cardizem drip, that was d/c Rate is uncontrolled and remain in Afib Starting on Metoprolol 25 mg PO q6hr On heparin drip Echo pending cardiology on board Plan to go to cardiac cath today (unofficial Echo showed LV dysnfuction) Continue monitor in telemetry keep NPO for now 05/23 Rate improved Normal cardiac cath Continue to on Afib cardiology on board ALHAJI done this morning showed left atrial thrombus, no cardioversion proceed D/C IV heparin Continue coumadin Will need to be on anticoagulant for at least 1 month with therapeutic INR's then repeat ALHAJI with hope thrombus resolves, so we can cardiovert her Diltiazem increase to 360 mg daily was starting on cardizem drip, that was D/C Starting on metoprolol 50mg BID No ACEI/ARB starting due to low BP IVF D/C INR 2.8 Will discharge on Coumadin 2.5 mg Check INR On Tue Follow up with cardiology in 2 weeks ECHO showed * The left ventricle is normal in size. * There is moderate to severe global hypokinesis of the left ventricle. * Ejection Fraction = 35-40%. * The left atrium is moderately dilated. * The right atrium is mild to moderately dilated. * There is moderate to severe mitral regurgitation. * There is mild tricuspid regurgitation. * The inferior vena cava is mildly dilated. DYSPNEA Related to IVF CXR showed mild pulmonary vascular congestion. IVF d/c Lasix given Resolved ANXIETY Ativan prn helps Continue Zoloft 25mg daily, Side effect discussed with pt DVT PROPHYLAXIS - Heparin gtt/Coumadin CODE STATUS FULL CODE DISPOSITION Will discharge home today Total time spent on discharge = 35 minutes This includes examination of the patient, discharge planning, medication reconciliation, and communication with other providers. Discharge Instructions Discharge Instructions Date of Service May 23, 2017. Admission Reason for Admission: Atrial Fibrillation With Rvr Discharge Discharge Diagnosis / Problem: Atrial Fibrillation with RVR, Anxiety, Dypnea Discharge Goals Goal(s): Decrease discomfort, Improve function, Improve disease control Activity Recommendations Activity Limitations: resume your previous activity (as tolerated) . Instructions / Follow-Up Instructions / Follow-Up Follow up with your new primary care provider Dr. Stevens on 05/30 @ 2:25 pm at the [facility] Follow up with Cardiology dr. Navas on 05/31 @ 12:45 pm at the [address] [place] [address] Follow up with the Coumadin clinic Check INR on Tuesday Starting on Zoloft to control your anxiety, your physician will titrate it between 4 to 6 weeks if needed Common side effect for Zoloft are Nausea/Vomiting/Diarrhea/Dizziness/Decrease sex drive/fatigue Medication Instructions: Coumadin * Warfarin is a medicine prescribed to prevent blood clots * Warfarin will thin your blood and help prevent new clots * Take your medications exactly as directed * Never skip a dose. Never take a double dose. If you miss a dose, take it as soon as you remember * It is important for your doctor to monitor your prothrombin time (PT). This is a lab test * Keep your appointment for lab tests Risk of Adverse Drug Reactions and Interactions: * Warfarin increases your risk of bleeding * The food you eat and other medications you take can affect how Warfarin works in your body * Ask your doctor about daily aspirin therapy * It is very important to talk with your doctor about all of the other medicines , antibiotics, vitamins or herbal products that you are taking * All of your medication must be approved by your doctor, including new medicines, as well as medicines you have taken before you started taking Warfarin * Avoid any NSAIDs such as Motrin, Ibuprofen, Naproxen, Aleve, Advil..) due to increase risk of bleeding Diet: * In order for Warfarin to work properly, it is important to keep your intake of Vitamin K as consistent as possible * You should avoid any sudden change in Vitamin K intake * Report any significant changes in your diet or weight to your doctor * Avoid any green leaf Call your Primary Care doctor if you experience any of the following: * Swelling or Pain in your leg * Sudden, continuous pain deep in a muscle * Pain that worsens when you are active or when you stand still for a long time * Chest Pain * Sudden Shortness of Breath * Rapid or pounding heart beat * Fainting * Dizziness * Cough with blood or bloody sputum * Sweating more than normal * Bruises * Heavy or uncontrolled bleeding * Blood in your urine, stool or vomit * Black or tarry stools * avoid any activity that put you at risk of falls Follow Up: It is important for you to keep your follow up appointments with your medical provider. Current Hospital Diet Patient's current hospital diet: AHA Diet (Heart Healthy) Discharge Diet Recommended Diet: AHA Diet (Heart Healthy) Pending Studies Studies pending at discharge: no Medical Emergencies . Who to Call and When: Medical Emergencies: If at any time you feel your situation is an emergency, please call 911 immediately. . Non-Emergent Contact Non-Emergency issues call your: Primary Care Provider Call Non-Emergent contact if: you have any medication questions . . "Provider Documentation" section prepared by Petra Soliz. . VTE Core Measure Inpt VTE Proph given/why not?: Warfarin (Coumadin), Other Anticoagulation ( heparin drip) Additional Copies To Helena Stevens,DO
== END 2017-05-23 18:15 | disposition home or self-care (01) | DRG 287 ==
LOC: C.EDB 14:23 → C.2T 16:20 → ENRESERV 17:09 → SUPCPDRO 17:20
PROVIDERS: ADMIT Internal Medicine; ATTEND Internal Medicine
PROC: 4A023N7 Measurement of Cardiac Sampling and Pressure, Left Heart, Percutaneous Approach (ICD-10-PCS; principal; 2017-05-19 12:47)
DX: I48.91 Unspecified atrial fibrillation (principal); I42.9 Cardiomyopathy, unspecified; F41.9 Anxiety disorder, unspecified; Z87.891 Personal history of nicotine dependence; Z80.0 Family history of malignant neoplasm of digestive organs

== ENCOUNTER → 2017-06-27 | Day surgery (SDC) | payer OTHER ==
[2017-06-27] VITALS (7 sets, daily range): BP systolic 119–145; BP diastolic 55–100; PULSE 87–150; TEMP 36.8; O2SAT 94–100; Ht 160 cm; Wt 65.0 kg
[~2017-06-27] VITALS: Ht 160 cm; Wt 65.0 kg
[~2017-06-27] MED LIST: BENZOCAIN/TETRACA/BUTAM SPRAY 200 APPLN/20 GM SPRY ONE; CANNULA ONE; CMD/25 PO; DLTCD/240 PO; FENTANYL CITRATE INJ 50 MCG/1 ML 2 ML VIAL ONE; GLYCOPYRROLATE INJ 0.2 MG/ML VIAL ONE; MIDAZOLAM HCL 1 MG/ML 2ML VIAL ONE; TPRSR50 PO; ZLF50 PO
--- NOTE | 2017-06-27 08:19 | History & Physical Bridge Note ---
H&P Re-Evaluation Bridge Note: I have examined the patient, reviewed the History & Physical and in the interval since the performance of the History & Physical I have noted the following changes of clinical significance: No changes noted
--- NOTE | 2017-06-27 08:20 | Pre Sedation Assessment ---
Pre Sedation Assessment General Date of Sedation: Jun 27, 2017. Vital Signs Past 12 Hours Date Time Temp Pulse Resp B/P (MAP) Pulse Ox O2 Delivery O2 Flow Rate FiO2 06/27/17 07:49 36.8 87 12 119/59 (79) 94 Room Air Review Cardiovascular: no edema, no gallop, no JVD, no murmur, normal peripheral pulses, + irregularly irregular Lungs: chest non-tender, lungs clear, normal breath sounds, no respiratory distress, no accessory muscle use Pre-Sedation Airway Assessment Smoking Status: Former Smoker Hx of Sleep Apnea: No Short Thick Neck: No Thyro-mental Distance: > 3 Finger Breadths Oral Cavity: WNL Mallampati Classification: Class II ASA Classification: Class II NPO Status Date of Last Intake of Fluids: Jun 26, 2017 Time of Last Intake of Fluids: 2358 Date of Last Intake of Solids: Jun 26, 2017 Time of Last Intake of Solids: 2358 Notes The planned sedation has been discussed with the patient. Informed Consent was obtained. I have identified the patient, determined the appropriateness of sedation and have assessed the patient immediately prior to the procedure. All medicine(s) and interventions are by my order.
--- NOTE | 2017-06-27 08:53 | Post Sedation Assessment ---
Post Sedation Assessment General Date of Sedation Jun 27, 2017. Vital Signs: Vital Signs Past 12 Hours Date Time Temp Pulse Resp B/P (MAP) Pulse Ox O2 Delivery O2 Flow Rate FiO2 06/27/17 07:49 36.8 87 12 119/59 (79) 94 Room Air Post Procedure Recovery Score Activity: (2) Moves 4 extremities * Respiration: (2) Deep breath/cough Circulation: (2) +/-20% PreAnes Value Consciousness: (2) Fully Awake Oxygen Saturation: (2) > 92% On Room Air Discharge Sedation Level of Care: Phase I Post Sedation Plan On clinical assessment, the patient appears to have tolerated the sedation without complications. Patient is recovering as anticipated. Patient will continue to be monitored by nursing and may be discharged when sedation discharge criteria are met per below protocol. Upon Completions of procedure and additional 15 minutes continue every 5 minute vital signs and the P.A.R. score; then discharge to a Phase I or Fast Track to Phase II per the following guidelines: * Discharge Patient to appropriate Phase II area if PAR is 8 or greater or return to pre- procedure baseline. The post - procedure orders will be as directed. * If PAR score is less than 8 or not return to pre-procedure baseline then patient will follow Phase I monitoring till PAR is reached for Phase II. The Phase I may be done in procedure room or may call to secure a Phase I area. * If naloxone or flumazenil are used for reversal, hold in Phase I for an additional 60 -120 minutes before discharge to Phase II. Please call the Sedation Physician to re-evaluate and complete post-note for discharge to Phase II area. Do NOT discharge from procedure sedation or Phase 1 until post- sedation evaluation note is complete by procedure /sedation MD Sedation Discharge Instructions to be given to the patient at discharge to home.
--- NOTE | 2017-06-27 08:57 | [facility] Post Operative Brief Note ---
Immediate Operative Summary Operative Date Jun 27, 2017. Pre-Operative Diagnosis atrial fibrillation Post-Operative Diagnosis same Procedure(s) Performed ALHAJI/CV conscious sedation with a total of 4mg of Versed and 75mcg of Fentanyl Surgeon Yosef Production Machinist Surgeon(s) Melissa ROSADO Estimated Blood Loss none Findings See Below no left atrial appendage thrombus present. unsuccessful cardioversion x 3 Specimens none start time: 0832 stop time: 0853 Drains None Anesthesia Type IV Sedat Cons RN Only Complication(s) none Disposition Accompanied Pt To Recover: Disposition: [facility]
--- NOTE | 2017-06-27 09:00 | Procedure Note ---
Procedure Note Date of Service Jun 27, 2017. Procedure Note Informed consent obtained pt prepped Adequate sedation achieved with 3mg of Versed and 50mcg of Fentanyl ALHAJI performed: no thrombus present in HERBER Probe removed additional 1mg of Versed and 25mcg of Fentanyl given 1st shock with 200J of energy with sinus rhythm for only a few seconds then atrial fibrillation 2nd shock with 360J of energy with sinus rhythm for over 30seconds then atrial fibrillatio 3rd shock with 360J of energy without sinus rhythm remained in atrial fibrillation pt tolerated well no complications to be recovered in [facility] Plan: will d/c to home on current outpatient regimen and tentatively plan of admission for Sotalol loading and repeat cardioversion, should she remain in afib f/u with me in 2-4 weeks
--- NOTE | 2017-06-27 11:08 | Discharge Instructions ---
Discharge Instructions Date of Service Jun 27, 2017. Admission Reason for Admission: A-Fib *Dr Navas Doing* Discharge Discharge Diagnosis / Problem: atrial fibrillation Discharge Goals Goal(s): Improve function Activity Recommendations Activity Limitations: resume your previous activity Lifting Limitations: none Exercise/Sports Limitations: rest today May Resume Sexual Activity: when tolerated Shower/Bathe: no limitations Driving or Machine Use: resume 1 day after discharge . Current Hospital Diet Patient's current hospital diet: Discharge Diet Recommended Diet: Regular Diet (no hot liquids or scratchy foods i.e. pretzels for 8 hours) Procedures Procedures Performed: ALHAJI/CV conscious sedation with a total of 4mg of Versed and 75mcg of Fentanyl Pending Studies Studies pending at discharge: no Medical Emergencies . Who to Call and When: Medical Emergencies: If at any time you feel your situation is an emergency, please call 911 immediately. . Non-Emergent Contact Non-Emergency issues call your: Primary Care Provider . . "Provider Documentation" section prepared by Johan Navas. . VTE Core Measure Inpt VTE Proph given/why not?: Warfarin (Coumadin)
--- NOTE | 2017-06-28 11:51 | TEE ---
*NOTICE TO RECEIVING CONSTITUTION PARTY AGENCY This information is strictly Confidential and protected under [place] law. [place] law prohibits you from making any further disclosure of this information unless further disclosure is expressly permitted by the written consent of the person to whom it pertains or is authorized by law. A general authorization for the release of medical or other information is not sufficient for this purpose. Hospital accepts no responsibility if the information is made available to any other person, INCLUDING THE PATIENT. Interpretation Summary * Name: SHUN MANDUJANO Study Date: 06/27/2017 07:58 AM BP: 125/100 mmHg * Patient Location: [facility]\S\S243\S\1 HR: 125 * : 1955 (M/d/yyyy) Gender: Female Height: 63 in * Age: 62 yrs Ethnicity: [place] Weight: 145 lb * Ordering Physician: Johan Navas * Referring Physician: Johan Navas D.O. * Performed By: Medardo Lawton RCS * * Reason For Study: A-FIB, Pre C/V, Eval for CSOE * BSA: 1.7 m2 * -- Conclusions -- * No thrombus is detected in the left atrial appendage. * No significant valvular pathology. Procedure Details * ALHAJI Probe #2 utilized for procedure. * The study was performed in Cardiopulmonary Department. * Time out was conducted by the physician, nurse, and recycling tech with positive identification of patient and procedure. * Informed consent for Transesophageal Echocardiogram was obtained prior to the procedure. * An intravenous line was placed. A topical anesthetic agent was used for oropharangeal anesthesia. A bite block was inserted. * The patient's vital signs, including blood pressure, heart rate, pulse oximetry and cardiac rhythm were monitored throughout the procedure . * Fentanyl 75 mcg was administered for procedural sedation. * Midazolam 3 mg administered for sedation. * Robinul .4 mg administered for to reduce oral secretions. * A multifrequency, multiplane transesopheageal echocardiographic endoscope was inserted and manipulated in the standard fashion to achieve multiplane views. * The transesophageal probe was passed without difficulty. * Procedure Start Time 0831 Procedure Stop Time 0854 * The usual views were obtained; basal, mid-esophageal, transgastric and aortic views. * The patient tolerated the procedure well without evidence of orophangeal or esophageal trauma. * A 2D transesophageal echocardiogram was performed. * A 2D transesophageal echocardiogram with color flow Doppler was performed. * A 2D transesophageal echocardiogram with Doppler and color flow Doppler was performed. Left Ventricle * The left ventricle is normal in size. Atria * The left atrial size is normal. * No thrombus is detected in the left atrial appendage. * Right atrial size is normal. * No ASD detected; PFO is not assessed. Tricuspid Valve * The tricuspid valve is normal in structure and function. Aortic Valve * The aortic valve is normal in structure and function. Pulmonic Valve * The pulmonary valve is not well seen, but the Doppler examination is normal without significant regurgitation or stenosis. Great Vessels * The aortic root and proximal ascending aorta are normal sized. Pericardium * There is no pericardial effusion.
== END | disposition home or self-care (01) ==
LOC: C.CPL 07:00
PROVIDERS: ATTEND Internal Medicine Cardiovascular Disease
DX: I48.91 Unspecified atrial fibrillation (principal); I42.9 Cardiomyopathy, unspecified; I34.0 Nonrheumatic mitral (valve) insufficiency; Z79.899 Other long term (current) drug therapy; Z79.01 Long term (current) use of anticoagulants

== ENCOUNTER → 2017-09-01 | Outpatient (CLI) | payer OTHER ==
[~2017-09-01] MED LIST changes: -BENZOCAIN/TETRACA/BUTAM SPRAY 200 APPLN/20 GM SPRY ONE; -CANNULA ONE; -CMD/25 PO; -FENTANYL CITRATE INJ 50 MCG/1 ML 2 ML VIAL ONE; -GLYCOPYRROLATE INJ 0.2 MG/ML VIAL ONE; -MIDAZOLAM HCL 1 MG/ML 2ML VIAL ONE; -ZLF50 PO
--- NOTE | 2017-09-01 12:41 | MAMMOGRAPHY REPORT ---
BILATERAL DIGITAL SCREENING MAMMOGRAM TOMOSYNTHESIS WITH CAD: 09/01/2017 CLINICAL HISTORY: Routine screening. Patient has no complaints. TECHNIQUE: Breast tomosynthesis in addition to standard 2D mammography was performed. Current study was also evaluated with a Computer Aided Detection (CAD) system. COMPARISON: Comparison is made to exams dated: 09/10/2014 mammogram, 02/13/2013 mammogram, 04/15/2010 mammogram, 07/15/2009 ultrasound, 07/15/2009 mammogram, and 07/08/2009 mammogram - [facility]. BREAST COMPOSITION: There are scattered areas of fibroglandular density in both breasts. FINDINGS: No suspicious masses, calcifications, or areas of architectural distortion are noted in ei ther breast. There has been no significant interval change compared to prior exams. Focal asymmetry in the left upper outer quadrant is stable compared to multiple prior exams. Scattered bilateral be nign-appearing calcifications are stable. IMPRESSION: ACR BI-RADS CATEGORY 2: BENIGN There is no mammographic evidence of malignancy. A 1 year screening mammogram is recommended. The pa tient will receive written notification of the results. Approximately 10% of breast cancers are not detected with mammography. A negative mammographic report should not delay biopsy if a clinically suggestive mass is present. Alyssa Prado M.D. /:09/01/2017 09:28:25 Rn Progressive Care Unit: Verito Sanderson, [facility] letter sent: Normal 1/2 BI-RADS Code: ACR BI-RADS Category 2: Benign
== END | disposition home or self-care (01) ==
LOC: C.MAMM 09:05
PROVIDERS: ATTEND Family Medicine
DX: Z12.31 Encounter for screening mammogram for malignant neoplasm of breast (principal)